=== PATIENT | male | born 1965 | race Two or more races ===

== ENCOUNTER 2022-07-25 07:10 | Inpatient (IN) | payer BC, OTHER ==
[~2022-07-25] VITALS: Ht 177.8 cm; Wt 96.0 kg
[2022-07-25] MEDS ORDERED: MORPHINE SULFATE 4 MG/ML SYR/VIAL IV ONE (08:00)
[2022-07-25] MEDS ORDERED: ONDANSETRON HCL 4 MG/2 ML VIAL IV ONE (08:00)
[2022-07-25] MEDS ORDERED: DOPamine 1600MCG/ML D5W 250 ML IV ONE (08:00)
[2022-07-25 08:06] LABS: Basophils # (auto) 0 10 ^3/uL (0-0.2); Basophils % (auto) 0.3 % (0.0-2.0); Eosinophils # (auto) 0 10 ^3/uL (0-0.8); Eosinophils % (auto) 0.1 % (0.0-7.0); Hematocrit 46.4 % (41.0-53.0); Hemoglobin 15.7 g/dL (13.5-17.5); Lymphocytes # (auto) 1.3 10 ^3/uL (0.4-5.4); Lymphocytes % (auto) 12.9 % (10.0-50.0); Mean Corpuscular Hemoglobin 30.2 pg (28.0-32.0); Mean Corpuscular Hgb Conc. 33.9 g/dL (32.0-36.0); Mean Corpuscular Volume 89.3 fL (80.0-100.0); Monocytes # (auto) 0.3 10 ^3/uL (0-1.3); Monocytes % (auto) 3.4 % (0.0-12.0); Neutrophils # (auto) 8.1 10 ^3/uL (1.6-8.6); Neutrophils % (auto) 83.3 % (37.0-80.0); Red Cell Distribution Width 13.5 % (11.8-14.3); White Blood Cell 9.7 10^3/uL (4.4-10.8)
[2022-07-25 08:24] LABS: Albumin 4.1 g/dL (3.4-5.0); Calcium 8.8 mg/dL (8.5-10.1); Potassium 4.5 mmol/L (3.5-5.1)
[2022-07-25 08:28] LABS: BUN/Creatinine Ratio 19.4; Bilirubin, Total 0.8 mg/dL (0.2-1.0); Total Protein 8.2 g/dL (6.4-8.2)
[2022-07-25 10:35] LABS: Urine Bacteria NONE SEEN /hpf (None Seen); Urine Blood Negative /uL (Negative); Urine Hyaline Cast FEW /lpf (0 - 2); Urine Mucus FEW (None Seen); Urine Specific Gravity 1.016 (1.001-1.035); Urine WBC 5 /hpf (0 - 3)
[2022-07-25] MEDS ORDERED: SODIUM CHLORIDE 0.9% 1,000 ML IV ONE (11:30)
[2022-07-25] MEDS ORDERED: MORPHINE SULFATE INJ 2 MG/ml SYRG IV PRN ×2 (14:15)
[2022-07-25] MEDS ORDERED: NITROGLYCERIN 0.4 MG SL TAB SL PRN (14:15)
[2022-07-25] MEDS ORDERED: hydrALAZINE HCL 20 MG/ML VL IV PRN (14:15)
[2022-07-25] MEDS ORDERED: ONDANSETRON HCL 4 MG/2 ML VIAL IV PRN (14:15)
[2022-07-25] MEDS ORDERED: DOPamine 1600MCG/ML D5W 250 ML IV SCH (17:00)
[2022-07-25] MEDS: DOPamine 1600MCG/ML D5W 250 ML IV SCH (19:00)
[2022-07-25] MEDS ORDERED: cefTRIAXone 1GM/50ML D5W 50 ML IV ONE (20:30)
[2022-07-25] MEDS: SODIUM CHLORIDE 0.9% 1,000 ML IV SCH (20:51)
[2022-07-25 21:20] LABS: Cholesterol 172 mg/dL (< 200); HDL Cholesterol 36 mg/dL (40-59); LDL Cholesterol 136 mg/dL (< 100); Triglycerides 61 mg/dL (< 150)
[2022-07-26] VITALS (7 sets, daily range): BP systolic 104–128; BP diastolic 60–85
[2022-07-26] MEDS ORDERED: DOPamine 1600MCG/ML D5W 250 ML IV SCH ×2 (00:45→00:48)
[2022-07-26] MEDS: SODIUM CHLORIDE 0.9% 1,000 ML IV SCH ×2 (06:27→20:59)
[2022-07-26 06:49] LABS: Basophils # (auto) 0 10 ^3/uL (0-0.2); Basophils % (auto) 0.3 % (0.0-2.0); Eosinophils # (auto) 0.2 10 ^3/uL (0-0.8); Eosinophils % (auto) 1.8 % (0.0-7.0); Hematocrit 45.5 % (41.0-53.0); Hemoglobin 14.7 g/dL (13.5-17.5); Lymphocytes # (auto) 1.9 10 ^3/uL (0.4-5.4); Lymphocytes % (auto) 17.1 % (10.0-50.0); Mean Corpuscular Hemoglobin 29.5 pg (28.0-32.0); Mean Corpuscular Hgb Conc. 32.3 g/dL (32.0-36.0); Mean Corpuscular Volume 91.3 fL (80.0-100.0); Monocytes # (auto) 0.8 10 ^3/uL (0-1.3); Monocytes % (auto) 7.3 % (0.0-12.0); Neutrophils # (auto) 8.2 10 ^3/uL (1.6-8.6); Neutrophils % (auto) 73.5 % (37.0-80.0); Red Blood Cells 4.98 10^6/uL (4.5-5.90); Red Cell Distribution Width 13.5 % (11.8-14.3); White Blood Cell 11.1 10^3/uL (4.4-10.8)
[2022-07-26 06:55] LABS: Albumin 3.5 g/dL (3.4-5.0); Calcium 8.1 mg/dL (8.5-10.1); Potassium 3.8 mmol/L (3.5-5.1)
[2022-07-26 07:00] LABS: BUN/Creatinine Ratio 17.9; Total Protein 7.4 g/dL (6.4-8.2)
[2022-07-26] MEDS: ENOXAPARIN SOD 40 MG/0.4 ML SYRINGE SC SCH (10:42)
[2022-07-26] MEDS: cefTRIAXone 1GM/50ML D5W 50 ML IV SCH (10:43)
[2022-07-26] MEDS ORDERED: LIDOCAINE 2%HCL (LOCAL ANESTH.) INJ 20ML MDV ONE (17:54)
[2022-07-26] MEDS ORDERED: fentaNYL CITRATE 100 MCG/2 ML VL ONE (18:03)
[2022-07-26] MEDS ORDERED: MIDAZOLAM HCL 2MG/2ML 2ml VIAL (1mg/ml) ONE (18:03)
[2022-07-26] MEDS ORDERED: VANCOMYCIN 1GM/250ML 250 ML IV ONE (18:04)
[2022-07-26] MEDS ORDERED: VANCOMYCIN HCL 1000 MG VL ONE (18:04)
[2022-07-26] MEDS ORDERED: ATORVASTATIN 20 MG TAB PO SCH (22:00)
[2022-07-27] MEDS: SODIUM CHLORIDE 0.9% 1,000 ML IV SCH (03:28)
[2022-07-27 05:31] VITALS: BP 127/71
[2022-07-27] MEDS ORDERED: VANCOMYCIN 1GM/250ML 250 ML IV ONE (06:00)
[2022-07-27 08:00] VITALS: BP 131/86
[2022-07-27 08:30] VITALS: BP 131/86
[2022-07-27] MEDS ORDERED: CIPR-173 PO (08:32)
[2022-07-27] MEDS ORDERED: ATO40T PO (08:32)
[2022-07-27] MEDS ORDERED: TAM04C PO (08:32)
[2022-07-27] MEDS: ENOXAPARIN SOD 40 MG/0.4 ML SYRINGE SC SCH (09:15)
[2022-07-27] MEDS: cefTRIAXone 1GM/50ML D5W 50 ML IV SCH (09:15)
[2022-07-27 11:58] VITALS: BP 131/86
== END 2022-07-27 12:46 | disposition home or self-care (01) | DRG 243 ==
LOC: ER 07:10 → TELE 14:15 → TELE-WESTW 07-26 09:04
PROVIDERS: ADMIT Registered Nurse; ATTEND Family Medicine
PROC: 0JH606Z Insertion of Pacemaker, Dual Chamber into Chest Subcutaneous Tissue and Fascia, Open Approach (ICD-10-PCS; principal; 2022-07-26)
PROC: 02H63JZ Insertion of Pacemaker Lead into Right Atrium, Percutaneous Approach (ICD-10-PCS; 2022-07-26)
PROC: 02HK3JZ Insertion of Pacemaker Lead into Right Ventricle, Percutaneous Approach (ICD-10-PCS; 2022-07-26)
DX: R00.1 Bradycardia, unspecified (principal); N39.0 Urinary tract infection, site not specified; E78.00 Pure hypercholesterolemia, unspecified; I10 Essential (primary) hypertension; I95.9 Hypotension, unspecified; R11.2 Nausea with vomiting, unspecified; N40.1 Benign prostatic hyperplasia with lower urinary tract symptoms; R33.8 Other retention of urine; Z79.899 Other long term (current) drug therapy; Z95.0 Presence of cardiac pacemaker; Z20.822 Contact with and (suspected) exposure to COVID-19
CPT/HCPCS: 33208; 36415; 71045; 74176; 80053; 80061; 81001; 82962; 83036; 83605; 84443; 84484; 85025; 87040; 93005; 93306; 93886; 96365; 96375; 99152; 99153; C1785; G0378; J0696; J2250; J2405

== ENCOUNTER → 2023-12-12 | Outpatient (CLI) | payer BC ==
[~2023-12-12] MED LIST: ATO40T PO; CIPR-173 PO; TAMS-35 PO
[2023-12-12 07:45] LABS: Basophils # (auto) 0 10 ^3/uL (0-0.2); Basophils % (auto) 0.5 % (0.0-2.0); Eosinophils # (auto) 0.3 10 ^3/uL (0-0.8); Eosinophils % (auto) 4.4 % (0.0-7.0); Hematocrit 45.3 % (41.0-53.0); Hemoglobin 15.4 g/dL (13.5-17.5); Lymphocytes # (auto) 1.5 10 ^3/uL (0.4-5.4); Lymphocytes % (auto) 21.5 % (10.0-50.0); Mean Corpuscular Hemoglobin 31.6 pg (28.0-32.0); Mean Corpuscular Hgb Conc. 34.1 g/dL (32.0-36.0); Mean Corpuscular Volume 92.7 fL (80.0-100.0); Monocytes # (auto) 0.4 10 ^3/uL (0-1.3); Monocytes % (auto) 5.9 % (0.0-12.0); Neutrophils # (auto) 4.7 10 ^3/uL (1.6-8.6); Neutrophils % (auto) 67.7 % (37.0-80.0); Nucleated Red Blood Cells % 0.2 %; Red Blood Cells 4.89 10^6/uL (4.5-5.90); White Blood Cell 6.9 10^3/uL (4.4-10.8)
[2023-12-12 08:07] LABS: Urine Blood Negative /uL (Negative); Urine Clarity Clear (Clear); Urine Color Colorless (Yellow); Urine Protein, UAD Negative (Negative); Urine Specific Gravity 1.022 (1.001-1.035); Urine Urobilinogen Normal (Negative)
[2023-12-12 08:24] LABS: Alanine Aminotransferase 41 U/L (7-40); Alkaline Phosphatase 117 U/L (46-116); Anion Gap 6 (5-15); Calcium 9.1 mg/dL (8.5-10.1); Carbon Dioxide 27 mmol/L (20-30); Chloride 107 mmol/L (98-107); Potassium 4.5 mmol/L (3.5-5.1); Sodium 140 mmol/L (136-145); Triglycerides 47 mg/dL (< 150)
[2023-12-12 08:25] LABS: Blood Urea Nitrogen 12 mg/dL (9-23); Glucose 99 mg/dL (74-106)
[2023-12-12 08:26] LABS: LDL Cholesterol 58 mg/dL (< 100)
[2023-12-12 08:27] LABS: Albumin 4.3 g/dL (3.2-4.8); Aspartate Aminotransferase 28 U/L (13-40); Bilirubin, Direct 0.4 mg/dL (<0.3); Cholesterol 97 mg/dL (< 200); HDL Cholesterol 31 mg/dL (40-59); Total Protein 7.2 g/dL (5.7-8.2)
[2023-12-12 08:48] LABS: Prostate Specific Antigen 9.17 ng/mL (0.0-4.0)
[2023-12-12 08:54] LABS: Free T4 (Free Thyroxine) 0.94 ng/dL (0.89-1.76)
[2023-12-13 08:07] LABS: PSA Free 1.9 ng/mL; Prostate Specific Antigen 10.6 ng/mL (0.0-4.0)
== END | disposition home or self-care (01) ==
LOC: LAB 07:17
PROVIDERS: ATTEND Internal Medicine Cardiovascular Disease
DX: I10 Essential (primary) hypertension (principal); E29.1 Testicular hypofunction; D64.9 Anemia, unspecified; N39.0 Urinary tract infection, site not specified; R53.1 Weakness; E55.9 Vitamin D deficiency, unspecified
CPT/HCPCS: 36415; 80053; 80061; 80076; 81003; 82607; 83036; 84153; 84154; 84403; 84439; 84443; 85025

== ENCOUNTER 2024-12-15 04:42 | Inpatient (IN) | payer BC ==
[~2024-12-15] VITALS: Ht 177.8 cm; Wt 91.9 kg
[~2024-12-15 04:42] MED LIST changes: -ATO40T PO; +ATOR-507 PO
--- NOTE | 2024-12-15 06:15 | ED.PDOC ---
History of Present Illness HPI Comments 59 y/o M, with a Hx of bradycardia s/p pacemaker, BPH, HLD, and UTI's, presents with c/o acute urinary retention with associated suprapubic abdominal pain, today. Patient endorses on sudden and unprovoked onset of symptoms, yesterday, at 1900. At time of initial assessment, patient reports no further relevant or pertinent information, such additional medical or surgical Hx, recent sexual activities, or injuries. He denies having any additional urinary symptoms, nausea, vomiting, fever, chills, or other associated symptoms or modifiers at this time. Chief Complaint: Urinary Time Seen by MD: 05:40 Primary Care Provider: None Reviewed Notes: Nurses Notes, Medications, Allergies Allergies: Coded Allergies: No Known Drug Allergy (Verified Allergy, Unknown, 07/25/22) Home Meds Active Scripts Atorvastatin Calcium (Lipitor) 40 Mg Tab, 1 TAB PO DAILY, #90 TAB 1 Refill Prov:CORI SAINZ MD 07/27/22 Ciprofloxacin Hcl (Cipro) 500 Mg Tab, 1 TAB PO BID, #14 TAB Prov:CORI SAINZ MD 07/27/22 Tamsulosin Hcl (Flomax) 0.4 Mg Cap, 1 CAP PO DAILY, #30 CAP 11 Refills Prov:CORI SAINZ MD 07/27/22 Information Source: Patient Mode of Arrival: Ambulatory Severity: Moderate Timing: Hours Duration: Since onset Prehospital treatment: None Past Medical History PAST MEDICAL HISTORY: High Lipids, UTI'S Past Medical History (Other): BPH, bradycardia Surgical History: Pacemaker Family History Family History: Reviewed,noncontributory to illness Social History Smoker: Non-Smoker Alcohol: Denies ETOH Use, Unknown Drugs: Denies Drug Use Lives In: Home Gastrointestinal: reports: abdominal pain (suparpubic region ) Genitourinary: reports: others (urinary retention) All Other Systems: Reviewed and Negative (negative unless otherwise stated above or in HPI) Physical Exam General Appearance: Moderate Distress, Normal HEENT: Normal ENT Inspection, Pharynx Normal, TMs Normal Neck: Full Range of Motion, Non-Tender, Normal, Normal Inspection Respiratory: Chest Non-Tender, Lungs Clear, No Accessory Muscle Use, No Respiratory Distress, Normal Breath Sounds Cardiovascular: No Edema, No JVD, No Murmur, No Gallop, Normal Peripheral Pulses, Regular Rate/Rhythm Breast Exam: Deferred Gastrointestinal: Distended (suprapubic region ), No Organomegaly, No Pulsatile Mass, Normal Bowel Sounds, Soft, Suprapubic (tenderness ), Tenderness (suprapubic region ) Genitalia: Deferred Pelvic: Deferred Rectal: Deferred Extremities: No calf tenderness, Normal capillary refill, Normal inspection, Normal range of motion, Non-tender, No pedal edema Musculoskeletal : Apperance: Normal Neurologic: Alert, health care aide II-XII nml as Tested, No Motor Deficits, Normal Affect, Normal Mood, No Sensory Deficits Cerebellar Function: NOT DONE Reflexes: NOT DONE Skin: Dry, Normal Color, Warm Peripheral Pulses: 3+ Radial (R), 3+ Radial (L) Lymphatic: No Adenopathy Was a procedure done? Was a procedure done?: No Differential Dx Considerations may include: UTI, ureteral obstruction, cystitis, ureteral stone, ureteral stenosis, prostatitis, X-Ray, Labs, Meds, VS Vital Signs Date Time Temp Pulse Resp B/P (MAP) Pulse Ox O2 Delivery O2 Flow Rate FiO2 12/15/24 08:00 81 11 130/88 (102) 95 12/15/24 08:00 81 12/15/24 06:40 Room Air* 0 21 12/15/24 05:44 97.9 100 19 123/99 (107) 96 97.9 12/15/24 05:37 97.8 128 26 139/118 (125) 98 Lab Test 12/15/24 07:05 12/15/24 05:50 Range/Units White Blood Count 13.1 H 4.4-10.8 10^3/uL Red Blood Count 4.83 4.5-5.90 10^6/uL Hemoglobin 15.5 13.5-17.5 g/dL Hematocrit 43.9 41.0-53.0 % Mean Corpuscular Volume 90.9 80.0-100.0 fL Mean Corpuscular Hemoglobin 32.0 28.0-32.0 pg Mean Corpuscular Hemoglobin Concent 35.2 32.0-36.0 g/dL Red Cell Distribution Width 13.3 11.8-14.3 % Platelet Count 158 140-450 10^3/uL Mean Platelet Volume 10.3 6.9-10.8 fL Neutrophils (%) (Auto) 89.4 H 37.0-80.0 % Lymphocytes (%) (Auto) 5.6 L 10.0-50.0 % Monocytes (%) (Auto) 4.8 0.0-12.0 % Eosinophils (%) (Auto) 0.0 0.0-7.0 % Basophils (%) (Auto) 0.2 0.0-2.0 % Neutrophils # (Auto) 11.7 H 1.6-8.6 10 ^3/uL Lymphocytes # (Auto) 0.7 0.4-5.4 10 ^3/uL Monocytes # (Auto) 0.6 0-1.3 10 ^3/uL Eosinophils # (Auto) 0 0-0.8 10 ^3/uL Basophils # (Auto) 0 0-0.2 10 ^3/uL Nucleated Red Blood Cells 0.1 % Sodium Level 138 136-145 mmol/L Potassium Level 3.5 3.5-5.1 mmol/L Chloride Level 105 98-107 mmol/L Carbon Dioxide Level 23 20-31 mmol/L Anion Gap 10 5-15 Blood Urea Nitrogen 14 9-23 mg/dL Creatinine 0.79 0.700-1.30 mg/dL Glomerular Filtration Rate Calc 102 >90 mL/min BUN/Creatinine Ratio 17.7 10.0-20.0 Serum Glucose 117 H 74-106 mg/dL Calcium Level 9.9 8.7-10.4 mg/dL Urine Color Light-yellow Yellow Urine Clarity Clear Clear Urine pH 5.0 5.0-9.0 Urine Specific [place] 1.010 1.001-1.035 Urine Protein Negative Negative Urine Ketones Negative Negative Urine Blood 2+ H Negative /uL Urine Nitrite Negative Negative Urine Bilirubin Negative Negative Urine Urobilinogen Normal Negative mg/dL Urine Leukocyte Esterase Negative Negative /uL Urine RBC 8 0 - 3 /hpf Urine Microscopic WBC < 1 0-3 /HPF Urine Squamous Epithelial Cells None seen <5 /hpf Urine Bacteria None seen None Seen /hpf Urine Glucose Normal Normal mg/dL Patient alert. Complaining of suprapubic discomfort. Vitals stable. Answering questions. Urinalysis shows blood. Possibly passed kidney stone. WBC elevated. Was given Rocephin. Explained to the patient. Continue cardiac monitoring. Time of 1ST Reevaluation: 06:00 Reevaluation 1ST: Unchanged Patient Education/Counseling: Diagnosis, Treatment Family Education/Counseling: No Family Present Assigned to signed out to morning provider MD. Jarvis England Additional Information I reviewed the following notes from patient's past medical encounters: Hospital admission discharge summary on 07/27/22 The following tests were ordered, and results were reviewed by me: UA, CBC, BMP I discussed treatment and results with medical personnel Departure 1 Departure Time of Disposition: 09:23 Impression: Primary Impression: Kidney stone Additional Impression: Hematuria Qualified Codes: R31.9 - Hematuria, unspecified Disposition: ADMITTED INPATIENT Admit to: Med Surg Condition: Guarded Critical Care Note Critical Care Time?: No Stability Stability form required: No Heart Score Heart Score: Heart Score Response (Comments) Value History N/A 0 EKG N/A 0 Age N/A 0 Risk Factors N/A 0 Troponin N/A 0 Total 0 I personally scribed for LEXI GUERRERO MD ([email or web address]) on 12/15/24 at 06:15. Electronically submitted by Rg Macdonald ([email or web address]). I personally scribed for LEXI GUERRERO MD ([email or web address]) on 12/15/24 at 06:19. Electronically submitted by Rg Macdonald ([email or web address]). LEXI GUERRERO MD Dec 15, 2024 06:15 JESUS ENGLAND MD Dec 15, 2024 09:23
[2024-12-15 06:22] LABS: Urine Bacteria None Seen /hpf (None Seen)
[2024-12-15 06:31] LABS: Urine Blood 2+ /uL (Negative); Urine Clarity Clear (Clear); Urine Color Light-Yellow (Yellow); Urine Protein, UAD Negative (Negative); Urine Squamous Epithelial Cell None Seen /hpf (<5); Urine Urobilinogen Normal (Negative); Urine WBC < 1 /HPF (0-3)
[2024-12-15 07:38] LABS: Anion Gap 10 (5-15); Carbon Dioxide 23 mmol/L (20-31); Chloride 105 mmol/L (98-107); Potassium 3.5 mmol/L (3.5-5.1); Sodium 138 mmol/L (136-145)
[2024-12-15 07:39] LABS: Calcium 9.9 mg/dL (8.7-10.4)
[2024-12-15 07:41] LABS: Basophils # (auto) 0 10 ^3/uL (0-0.2); Basophils % (auto) 0.2 % (0.0-2.0); Eosinophils # (auto) 0 10 ^3/uL (0-0.8); Hematocrit 43.9 % (41.0-53.0); Hemoglobin 15.5 g/dL (13.5-17.5); Lymphocytes # (auto) 0.7 10 ^3/uL (0.4-5.4); Lymphocytes % (auto) 5.6 % (10.0-50.0); Mean Corpuscular Hgb Conc. 35.2 g/dL (32.0-36.0); Mean Corpuscular Volume 90.9 fL (80.0-100.0); Monocytes # (auto) 0.6 10 ^3/uL (0-1.3); Monocytes % (auto) 4.8 % (0.0-12.0); Neutrophils # (auto) 11.7 10 ^3/uL (1.6-8.6); Neutrophils % (auto) 89.4 % (37.0-80.0); Nucleated Red Blood Cells % 0.1 %; Platelet Count (auto) 158 10^3/uL (140-450); Red Blood Cells 4.83 10^6/uL (4.5-5.90); Red Cell Distribution Width 13.3 % (11.8-14.3); White Blood Cell 13.1 10^3/uL (4.4-10.8)
[2024-12-15 07:44] LABS: BUN/Creatinine Ratio 17.7 (10.0-20.0); Blood Urea Nitrogen 14 mg/dL (9-23)
[2024-12-15 07:47] LABS: Glucose 117 mg/dL (74-106)
[2024-12-15] MEDS ORDERED: ACETAMINOPHEN 325 MG TAB PO PRN (09:45)
[2024-12-15] MEDS ORDERED: HYDROcodone-ACET 5/325MG TAB PO PRN (09:45)
[2024-12-15] MEDS ORDERED: ONDANSETRON HCL 4 MG/2 ML VIAL IV PRN (09:45)
[2024-12-15] MEDS: cefTRIAXone 1GM/50ML D5W 50 ML IV ONE (09:47)
--- NOTE | 2024-12-15 10:23 | DVHHP2 ---
History of Present Illness Reason for Visit: Abdominal pain History of Present Illness Simon Sanders is a 59-year-old male with past medical history of hypertension, hyperlipidemia, BPH, frequent UTIs, and bradycardia with pacemaker placed 4 years ago at [facility] who presents to the ED with suprapubic abdominal pain and urinary retention since 7:00 p.m. last night. Patient reports the pain as 10/10 intermittent and pressure-like. He states the last time he had this issue was several years ago. Patient denies any chest pain, shortness of breath, fever, chills, lightheadedness, dizziness, urinary frequency, urinary urgency, nausea, vomiting, and diarrhea. Cardiovascular: HTN, hyperipidemia, Other (Bradycardia) Renal/: Benign prostatic enlarg. Past Surgical History: Other (Pacemaker) Family History: None Smoke: No ALCOHOL: none Drugs: None Lives: Alone Domestic Violence: Neg Review of Systems Constitutional: No: Fever, Chills, Sweats, Weakness, Malaise, Other Eyes: No: Pain, Vision change, Conjunctivae inflammation, Eyelid inflammation, Other, Redness ENT: No: Ear pain, Ear discharge, Nose pain, Nose discharge, Nose congestion, Mouth pain, Mouth swelling, Throat pain, Throat swelling, Other Respiratory: No: Cough, Dry, Shortness of breath, SOB with excertion, Wheezing, Hemoptysis, Pleuritic Pain, Sputum, Wheezing, Other Cardiovascular: No: Chest Pain, Palpitations, Orthopnea, Paroxysmal Noc. Dyspnea, Edema, Lt Headedness, Other Gastrointestinal: No: Nausea, Vomiting, Abdominal Pain, Diarrhea, Constipation, Melena, Hematochezia, Other Genitourinary: Hematuria, Retention Musculoskeletal: No: other, neck pain, shoulder pain, arm pain, back pain, hand pain, leg pain, foot pain Neurological: No: Weakness, Numbness, Incoordination, Change in speech, Confusion, Seizures, Other Allergies: Coded Allergies: No Known Drug Allergy (Verified Allergy, Unknown, 07/25/22) Medications Current Medications Medications Dose Ordered Sig/Syeda Route Start Time Stop Time Status Last Admin Dose Admin Ceftriaxone Sodium 50 ml @ 100 mls/hr DAILY@09 IV 12/16/24 09:00 UNV Acetaminophen/ Hydrocodone Bitart 1 tab Q4HP PRN PO 12/15/24 09:45 UNV Ondansetron HCl 4 mg Q4HP PRN IV 12/15/24 09:45 UNV Acetaminophen 650 mg Q6HP PRN PO 12/15/24 09:45 UNV Tamsulosin HCl 0.4 mg DAILY PO 12/15/24 10:00 UNV Patient Own Medication 1 tab DAILY PO 12/15/24 10:00 UNV Exam Vital Signs Vital Signs Date Time Temp Pulse Resp B/P (MAP) Pulse Ox O2 Delivery O2 Flow Rate FiO2 12/15/24 08:00 81 11 130/88 (102) 95 12/15/24 06:40 Room Air* 0 21 12/15/24 05:44 97.9 97.9 General Appearance: Alert, Oriented X3, Cooperative, No acute distress HEENT: Atraumatic, PERRLA, EOMI, Mucous membr. moist/pink Respiratory: Clear to auscultation, Normal air movement Cardiovascular: Normal S1, Normal S2, No murmurs Abdominal: Normal bowel sounds, Soft, No tenderness, No hepatospenomegaly, No masses Extremities: No clubbing, No cyanosis, No edema, Normal pulses, No tenderness/swelling Skin: No rashes, No breakdown, No significant lesion Neuro: Normal gait, Normal speech, Strength at 5/5 X4 ext, Normal tone, Sensation intact Psych/Mental Status: Mental status NL, Mood NL Labs/Xrays Labs Test 12/15/24 07:05 12/15/24 05:50 Range/Units White Blood Count 13.1 H 4.4-10.8 10^3/uL Red Blood Count 4.83 4.5-5.90 10^6/uL Hemoglobin 15.5 13.5-17.5 g/dL Hematocrit 43.9 41.0-53.0 % Mean Corpuscular Volume 90.9 80.0-100.0 fL Mean Corpuscular Hemoglobin 32.0 28.0-32.0 pg Mean Corpuscular Hemoglobin Concent 35.2 32.0-36.0 g/dL Red Cell Distribution Width 13.3 11.8-14.3 % Platelet Count 158 140-450 10^3/uL Mean Platelet Volume 10.3 6.9-10.8 fL Neutrophils (%) (Auto) 89.4 H 37.0-80.0 % Lymphocytes (%) (Auto) 5.6 L 10.0-50.0 % Monocytes (%) (Auto) 4.8 0.0-12.0 % Eosinophils (%) (Auto) 0.0 0.0-7.0 % Basophils (%) (Auto) 0.2 0.0-2.0 % Neutrophils # (Auto) 11.7 H 1.6-8.6 10 ^3/uL Lymphocytes # (Auto) 0.7 0.4-5.4 10 ^3/uL Monocytes # (Auto) 0.6 0-1.3 10 ^3/uL Eosinophils # (Auto) 0 0-0.8 10 ^3/uL Basophils # (Auto) 0 0-0.2 10 ^3/uL Nucleated Red Blood Cells 0.1 % Sodium Level 138 136-145 mmol/L Potassium Level 3.5 3.5-5.1 mmol/L Chloride Level 105 98-107 mmol/L Carbon Dioxide Level 23 20-31 mmol/L Anion Gap 10 5-15 Blood Urea Nitrogen 14 9-23 mg/dL Creatinine 0.79 0.700-1.30 mg/dL Glomerular Filtration Rate Calc 102 >90 mL/min BUN/Creatinine Ratio 17.7 10.0-20.0 Serum Glucose 117 H 74-106 mg/dL Calcium Level 9.9 8.7-10.4 mg/dL Urine Color Light-yellow Yellow Urine Clarity Clear Clear Urine pH 5.0 5.0-9.0 Urine Specific [place] 1.010 1.001-1.035 Urine Protein Negative Negative Urine Ketones Negative Negative Urine Blood 2+ H Negative /uL Urine Nitrite Negative Negative Urine Bilirubin Negative Negative Urine Urobilinogen Normal Negative mg/dL Urine Leukocyte Esterase Negative Negative /uL Urine RBC 8 0 - 3 /hpf Urine Microscopic WBC < 1 0-3 /HPF Urine Squamous Epithelial Cells None seen <5 /hpf Urine Bacteria None seen None Seen /hpf Urine Glucose Normal Normal mg/dL Exam: CT CT AB PEL WO CON-NO ORAL OR IV History: abd pain Comparison Study: [facility] on DOS: 07/25/22, CT ABD PELVIS WO CONTRAST on DOS: 07/25/22 Technique: Multidetector spiral CT of the abdomen and pelvis was performed from lung bases to pubic symphysis. Imaging was performed without IV contrast. Axial, coronal and sagittal multiplanar reformats were obtained from the axial data set by the technologist. Radiation dose : Abdomen/Pelvis: CTDIvol 21 mGy, DLP 863.12 mGy*cm. Findings: Evaluation of solid organs is limited due to lack of intravenous contrast use. Lung Bases: Atelectasis and scarring in the lung bases. Liver: Suggestion of a hypodense lesion in the dome of the liver measuring up to 25 mm. Gallbladder and biliary Tree: Unremarkable Spleen: Unremarkable Pancreas: The pancreas is grossly normal in appearance. Adrenal Glands: Unremarkable Kidneys: Kidneys are grossly normal without calculi or hydronephrosis. Bladder: Bladder is decompressed with a Muñoz catheter and cannot be adequately assessed. Bowel: The stomach is grossly normal in appearance. Small bowel and colon are normal in caliber and distribution. Normal appendix is visualized in the right lower quadrant without findings of appendicitis. Ascites: Absent Lymphadenopathy: No mesenteric, retroperitoneal or periportal lymphadenopathy. Abdominal wall and Mesentery: Unremarkable. Vasculature: Calcified atherosclerotic disease. Pelvic Organs: Marked prostatomegaly. Musculoskeletal: No aggressive focal bony lesions, acute fractures or dislocation. IMPRESSION: 1. No acute abdominal or pelvic findings. Suggestion of a hypodense lesion in the dome of the liver. This can be further evaluated with CT or MRI of the abdomen with contrast. Marked prostatomegaly. No significant interval change compared to prior. Assessment/Plan Assessment/Plan Assessment/Plan: Intractable abdominal pain likely due to UTI Leukocytosis Hematuria Labs UA Muñoz catheter IV antibiotics-ceftriaxone CT abdomen and pelvis Antiemetics Pain management A.m. labs CT abdomen and pelvis Suggestion of a hypodense lesion in the dome of the liver CT abdomen pelvis with contrast Chronic hypertension Monitor patient states not on any medications Chronic hyperlipidemia Continue home medication History of BPH Continue home medication History of bradycardia now with pacemaker over 4 years ago Monitor Last echo on 01/20/2024 EF 55% FEN/PPX Diet Hep-Lock DVT prophylaxis not indicated patient ambulating PUD prophylaxis not indicated no history of GERD or GI bleed Admit to med surg Home medications reconciled Discussed plan of care with patient and nurse Plan discussed with: Patient My Orders Orders - RAUL MORA BUILDING RIGGER Procedure Category Date Status Time Ct Ab Pel Wo Con-No CT 12/15/24 Taken Oral Or Iv 09:33 Ceftriaxone 1gm/50ml PHA 12/16/24 Logged D5w (Rocephin) 09:00 Admit ADMIT 12/15/24 Transmitted 09:36 Allergies KEI 12/15/24 In Process 09:36 Code Status CODE 12/15/24 Transmitted 09:36 Hydrocodone-Acet PHA 12/15/24 Logged 5/325mg Tab (Lorenzo 09:45 Ondansetron Hcl PHA 12/15/24 Logged (Zofran) 09:45 Complete Blood Count LAB 12/16/24 Verified 04:00 Comprehensive LAB 12/16/24 Verified Metabolic Panel 04:00 Cardiac DIET 12/15/24 Transmitted Diet-2gna,Lofat,Lochol Lunch Acetaminophen Tablet PHA 12/15/24 Logged (Tylenol Tablet) 09:45 Tamsulosin PHA 12/15/24 Logged Hydrochloride (Flomax) 10:00 (Nf) Atorvastatin PHA 12/15/24 Logged Calcium (Lipitor) 10:00 Date of Service: Dec 15, 2024 Billing Provider: RAUL MORA Common Visit Codes: [id number] INP/OBS CARE (HIGH) RAUL MORA Dec 15, 2024 10:23
--- NOTE | 2024-12-15 10:36 | DVH ---
Exam: CT CT AB PEL WO CON-NO ORAL OR IV History: abd pain Comparison Study: [facility]ID[facility] on DOS: 07/25/22, CT ABD PELVIS WO CONTRAST on DOS: 07/25/22 Technique: Multidetector spiral CT of the abdomen and pelvis was performed from lung bases to pubic symphysis. Imaging was performed without IV contrast. Axial, coronal and sagittal multiplanar reform ats were obtained from the axial data set by the technologist. Radiation dose : Abdomen/Pelvis: CTDIvol 21 mGy, DLP 863.12 mGy*cm. Findings: Evaluation of solid organs is limited due to lack of intravenous contrast use. Lung Bases: Atelectasis and scarring in the lung bases. Liver: Suggestion of a hypodense lesion in the dome of the liver measuring up to 25 mm. Gallbladder and biliary Tree: Unremarkable Spleen: Unremarkable Pancreas: The pancreas is grossly normal in appearance. Adrenal Glands: Unremarkable Kidneys: Kidneys are grossly normal without calculi or hydronephrosis. Bladder: Bladder is decompressed with a Muñoz catheter and cannot be adequately assessed. Bowel: The stomach is grossly normal in appearance. Small bowel and colon are normal in caliber and d istribution. Normal appendix is visualized in the right lower quadrant without findings of appendici tis. Ascites: Absent Lymphadenopathy: No mesenteric, retroperitoneal or periportal lymphadenopathy. Abdominal wall and Mesentery: Unremarkable. Vasculature: Calcified atherosclerotic disease. Pelvic Organs: Marked prostatomegaly. Musculoskeletal: No aggressive focal bony lesions, acute fractures or dislocation. IMPRESSION: 1. No acute abdominal or pelvic findings. Suggestion of a hypodense lesion in the dome of the liver. This can be further evaluated with CT or MRI of the abdomen with contrast. Marked prostatomegaly. No significant interval change compared to prior. Radiation optimization: All CT scans at this facility use at least one of these dose optimization dao hniques: Automated exposure control mA and/or kV adjustment per patient size (includes targeted exams where dose is matched to clinical indication) or iterative reconstruction. HS:Y
[2024-12-15] MEDS: TAMSULOSIN HYDROCHLORIDE 0.4 MG CAP PO SCH (11:10)
[2024-12-15 11:13] VITALS: PULSE 70; RESP 16; O2SAT 93
[2024-12-15 14:08] VITALS: PULSE 71; RESP 17; O2SAT 95
[2024-12-15] MEDS: GASTROGRAFIN 30 ML SOL ONE (15:42)
[2024-12-15] MEDS: FINASTERIDE 5 MG TAB PO ONE (17:51)
[2024-12-15 18:30] VITALS: BP 133/84; PULSE 76; RESP 19; TEMP 98.4; O2SAT 95
[2024-12-15] MEDS ORDERED: IOHEXOL 300 MG/ML 100ML BOTTLE IJ ONE (19:19)
[2024-12-15 19:25] VITALS: PULSE 76; RESP 19; O2SAT 95
--- NOTE | 2024-12-15 20:40 | DVH ---
Exam: CT CT ABD PELVIS W CON-ORAL IV History: liver lesion Comparison Study: CT CT AB PEL WO CON-NO ORAL OR IV on DOS: 12/15/24 TECHNIQUE: A digital dual hose cementer image was obtained. During the uneventful, intravenous and oral administra tion of contrast material, multislice data acquisition was obtained through the abdomen and pelvis. T he data set was subsequently reconstructed into axial images. Images reviewed on a wrist examination is an examination of axial and multiplanar reformations using a variety of window levels and settings . RADIATION DOSE: DLP 1205.02 mGy.cm; CTDI vol 21.0 mGy. Findings: Lungs: The lung bases are clear. Heart: No cardiomegaly or pericardial effusion. Liver: 1.4 x 2.8 cm hypoattenuating lesion in the dome of liver is suboptimally visualized due to mot ion artifact. Gallbladder: Unremarkable. Spleen: Unremarkable Pancreas: Unremarkable Adrenals: Unremarkable Kidneys: Unremarkable GI tract: Unremarkable : The urinary bladder is decompressed via Muñoz catheter. Prostatomegaly. Vasculature: Moderate aortoiliac atherosclerosis. Lymphadenopathy: Absent Peritoneum: No ascites Musculoskeletal: Unremarkable Soft tissues: Unremarkable Impression: 1. No acute abdominopelvic abnormalities. 2. 1.4 x 2.8 cm hypoattenuating lesion in the dome of liver is suboptimally visualized due to motion artifact. Consider further evaluation with contrast enhanced MRI. 3. Other non-acute, ancillary findings as described above.
[2024-12-15] MEDS: ATORVASTATIN 20 MG TAB PO SCH (23:00)
[2024-12-15 23:26] VITALS: BP 121/75; PULSE 72; RESP 20; TEMP 98.5; O2SAT 92
[2024-12-16] VITALS (8 sets, daily range): BP systolic 113–130; BP diastolic 61–82; PULSE 70–79; RESP 18–20; TEMP 97.9–98.1; O2SAT 92–98
[2024-12-16 07:34] LABS: Basophils # (auto) 0 10 ^3/uL (0-0.2); Basophils % (auto) 0.2 % (0.0-2.0); Eosinophils # (auto) 0.2 10 ^3/uL (0-0.8); Eosinophils % (auto) 2.7 % (0.0-7.0); Hematocrit 44.1 % (41.0-53.0); Hemoglobin 15.1 g/dL (13.5-17.5); Lymphocytes # (auto) 1.3 10 ^3/uL (0.4-5.4); Mean Corpuscular Hemoglobin 31.9 pg (28.0-32.0); Mean Corpuscular Hgb Conc. 34.3 g/dL (32.0-36.0); Mean Corpuscular Volume 93.3 fL (80.0-100.0); Monocytes # (auto) 0.5 10 ^3/uL (0-1.3); Monocytes % (auto) 5.4 % (0.0-12.0); Neutrophils # (auto) 6.8 10 ^3/uL (1.6-8.6); Neutrophils % (auto) 76.7 % (37.0-80.0); Nucleated Red Blood Cells % 0.1 %; Platelet Count (auto) 154 10^3/uL (140-450); Red Blood Cells 4.73 10^6/uL (4.5-5.90); Red Cell Distribution Width 13.5 % (11.8-14.3); White Blood Cell 8.9 10^3/uL (4.4-10.8)
[2024-12-16 07:57] LABS: Alanine Aminotransferase 33 U/L (7-40); Albumin 3.9 g/dL (3.2-4.8); Anion Gap 8 (5-15); Aspartate Aminotransferase 29 U/L (13-40); BUN/Creatinine Ratio 17.6 (10.0-20.0); Blood Urea Nitrogen 16 mg/dL (9-23); Calcium 9.1 mg/dL (8.7-10.4); Carbon Dioxide 25 mmol/L (20-31); Chloride 106 mmol/L (98-107); Potassium 4.3 mmol/L (3.5-5.1); Sodium 139 mmol/L (136-145); Total Protein 6.3 g/dL (5.7-8.2)
[2024-12-16 08:02] LABS: Alkaline Phosphatase 119 U/L (46-116); Bilirubin, Total 1.3 mg/dL (0.2-1.0); Glucose 139 mg/dL (74-106)
[2024-12-16] MEDS: cefTRIAXone 1GM/50ML D5W 50 ML IV SCH (09:15)
[2024-12-16] MEDS: FINASTERIDE 5 MG TAB PO SCH (09:15)
--- NOTE | 2024-12-16 16:02 | DVHPN2 ---
Subjective Patient reports that his abdominal pain has improved. Reviewed: Care Plan, H&P, Labs, Medications Changes from previous H/P or p: No Changes General: Per HPI Eyes: No Pain, No Vision change, No Conjunctivae inflammation, No Eyelid inflammation, No Other, No Redness ENT: No Ear pain, No Ear discharge, No Nose pain, No Nose discharge, No Nose congestion, No Mouth pain, No Mouth swelling, No Throat pain, No Throat swelling, No Other Cardiovascular: No Chest Pain, No Palpitations, No Orthopnea, No Paroxysmal Noc. Dyspnea, No Edema, No Lt Headedness, No Other Respiratory: No Cough, No Dry, No Shortness of breath, No SOB with excertion, No Wheezing, No Hemoptysis, No Pleuritic Pain, No Sputum, No Other Gastrointestinal: No Nausea, No Vomiting, No Abdominal Pain, No Diarrhea, No Constipation, No Melena, No Hematochezia, No Other Genitourinary: Hematuria, Retention Musculoskeletal: No other, No neck pain, No shoulder pain, No arm pain, No back pain, No hand pain, No leg pain, No foot pain Objective Vitals Vital Signs Date Time Temp Pulse Resp B/P (MAP) Pulse Ox O2 Delivery O2 Flow Rate FiO2 12/16/24 13:00 98.1 72 18 127/82 (97) 95 98.1 12/16/24 08:00 Room Air* 0 21 Intake/Output Intake and Output 12/16/24 07:00 Intake Total 400 ml Output Total 2650 ml Balance -2250 ml Intake Oral 300 ml IV Total 100 ml Output Urine Total 2650 ml General Appearance: Alert, Oriented X3, Cooperative, No acute distress HEENT: Atraumatic, PERRLA Lungs: Clear to auscultation, Normal air movement Cardiovascular: Normal S1, Normal S2 Abdomen: Normal bowel sounds Genitourinary: No Apparent Abnormalities Musculoskeletal: Normal sensory function, Normal motor function Neuro: Normal gait, Normal speech Psych/Mental Status: Mental status NL, Mood NL Medications Current Medications Medications Dose Ordered Sig/Syeda Route Start Time Stop Time Status Last Admin Dose Admin Ceftriaxone Sodium 50 ml @ 100 mls/hr DAILY@09 IV 12/16/24 09:00 12/16/24 09:15 100 MLS/HR Acetaminophen/ Hydrocodone Bitart 1 tab Q4HP PRN PO 12/15/24 09:45 Ondansetron HCl 4 mg Q4HP PRN IV 12/15/24 09:45 Acetaminophen 650 mg Q6HP PRN PO 12/15/24 09:45 Tamsulosin HCl 0.4 mg DAILY PO 12/15/24 10:00 12/16/24 09:15 0.4 MG Atorvastatin Calcium 40 mg HS PO 12/15/24 22:00 12/15/24 23:00 40 MG Finasteride 5 mg DAILY PO 12/16/24 10:00 12/16/24 09:15 5 MG Laboratory Results Laboratory Tests 12/16/24 06:55 Chemistry Test 12/16/24 06:55 Albumin 3.9 g/dL (3.2-4.8) Calcium Level 9.1 mg/dL (8.7-10.4) Total Protein 6.3 g/dL (5.7-8.2) LFT Test 12/16/24 06:55 Alanine Aminotransferase (ALT) 33 U/L (7-40) Alkaline Phosphatase 119 U/L (46-116) H Aspartate Amino Transferase (AST) 29 U/L (13-40) Total Bilirubin 1.3 mg/dL (0.2-1.0) H Urinalysis Test 12/15/24 05:50 Urine Color Light-yellow (Yellow) Urine Clarity Clear (Clear) Urine pH 5.0 (5.0-9.0) Urine Specific [place] 1.010 (1.001-1.035) Urine Protein Negative (Negative) Urine Ketones Negative (Negative) Urine Blood 2+ /uL (Negative) H Urine Nitrite Negative (Negative) Urine Bilirubin Negative (Negative) Urine Urobilinogen Normal mg/dL (Negative) Urine Leukocyte Esterase Negative /uL (Negative) Urine RBC 8 /hpf (0 - 3) Urine Microscopic WBC < 1 /HPF (0-3) Urine Squamous Epithelial Cells None seen /hpf (<5) Urine Bacteria None seen /hpf (None Seen) Urine Glucose Normal mg/dL (Normal) Labs and/or images reviewed: Labs reviewed by me, Image(s) reviewed by me Assessment/Plan Assessment/Plan Impression: -obstructive uropathy -prostatomegaly -dyslipidemia -primary hypertension -rule out UTI Plan: Discussed patient's HPI with the patient. He states that after the Muñoz catheter was placed his suprapubic pain has resolved. Patient does report having urinary frequency, more so noted at nighttime. Patient states he reported seeing a urologist in the past, but has not been treated. Discussion made with the patient regarding findings on CT scan. -continue Flomax and finasteride -urology consultation -continue antibiotic therapy -antihypertensives -DC planning once seen by Urology. Total time spent with patient discussing and formulating plan of care: 35 minutes. This medical document was created using an electronic medical record system with tabulate dictation system. Although this document has been carefully reviewed, there may still be some phonetic and typographical errors. These areas are purely typographical due to imperfections of the software programs, and do not reflect any compromise in the patient's medical care. Plan discussed with: Patient, Other (RN) My Orders Orders - SHEYLA FERRO NP Procedure Category Date Status Time * Urology Consult CONS 12/16/24 Transmitted 15:13 Date of Service: Dec 16, 2024 Billing Provider: SHEYLA FERRO NP Common Visit Codes: [id number] INP/OBS CARE(HIGH) SHEYLA FERRO NP Dec 16, 2024 16:02
--- NOTE | 2024-12-16 16:26 | DVHINCON2 ---
Date of service: Dec 16, 2024 Reason for Consultation retention of urine, quevedo in place History of Present Illness History Source: Patient, Old Records Exam Limitations: No limitations HPI 59 yo male history of elevated PSA, BPH, and UTIs. presents for urinary retention. Quevedo catheter in place, Pt was seen in office 02/2024 and was to have MP MRI done, he did not have imaging done and he has not followed up thus far. Home Meds Active Scripts Atorvastatin Calcium (Lipitor) 40 Mg Tab, 1 TAB PO DAILY, #90 TAB 1 Refill Prov:CORI SAINZ MD 07/27/22 Tamsulosin Hcl (Flomax) 0.4 Mg Cap, 1 CAP PO DAILY, #30 CAP 11 Refills Prov:CORI SAINZ MD 07/27/22 Discontinued Scripts Ciprofloxacin Hcl (Cipro) 500 Mg Tab, 1 TAB PO BID, #14 TAB Prov:CORI SAINZ MD 07/27/22 Past Medical History Patient Family History: Patient reports no known family medical history. H&P Exam Vital Signs Vital Signs Date Time Temp Pulse Resp B/P (MAP) Pulse Ox O2 Delivery O2 Flow Rate FiO2 12/16/24 13:00 98.1 72 18 127/82 (97) 95 98.1 12/16/24 08:00 Room Air* 0 21 Labs/Xrays Labs Test 12/16/24 06:55 12/15/24 07:05 12/15/24 05:50 Range/Units White Blood Count 8.9 # 4.4-10.8 10^3/uL Red Blood Count 4.73 4.5-5.90 10^6/uL Hemoglobin 15.1 13.5-17.5 g/dL Hematocrit 44.1 41.0-53.0 % Mean Corpuscular Volume 93.3 80.0-100.0 fL Mean Corpuscular Hemoglobin 31.9 28.0-32.0 pg Mean Corpuscular Hemoglobin Concent 34.3 32.0-36.0 g/dL Red Cell Distribution Width 13.5 11.8-14.3 % Platelet Count 154 140-450 10^3/uL Mean Platelet Volume 10.1 6.9-10.8 fL Neutrophils (%) (Auto) 76.7 37.0-80.0 % Lymphocytes (%) (Auto) 15.0 10.0-50.0 % Monocytes (%) (Auto) 5.4 0.0-12.0 % Eosinophils (%) (Auto) 2.7 0.0-7.0 % Basophils (%) (Auto) 0.2 0.0-2.0 % Neutrophils # (Auto) 6.8 1.6-8.6 10 ^3/uL Lymphocytes # (Auto) 1.3 0.4-5.4 10 ^3/uL Monocytes # (Auto) 0.5 0-1.3 10 ^3/uL Eosinophils # (Auto) 0.2 0-0.8 10 ^3/uL Basophils # (Auto) 0 0-0.2 10 ^3/uL Nucleated Red Blood Cells 0.1 % Sodium Level 139 136-145 mmol/L Potassium Level 4.3 3.5-5.1 mmol/L Chloride Level 106 98-107 mmol/L Carbon Dioxide Level 25 20-31 mmol/L Anion Gap 8 5-15 Blood Urea Nitrogen 16 9-23 mg/dL Creatinine 0.91 0.700-1.30 mg/dL Glomerular Filtration Rate Calc 97 >90 mL/min BUN/Creatinine Ratio 17.6 10.0-20.0 Serum Glucose 139 H 74-106 mg/dL Calcium Level 9.1 8.7-10.4 mg/dL Total Bilirubin 1.3 H 0.2-1.0 mg/dL Aspartate Amino Transferase (AST) 29 13-40 U/L Alanine Aminotransferase (ALT) 33 7-40 U/L Alkaline Phosphatase 119 H 46-116 U/L Total Protein 6.3 5.7-8.2 g/dL Albumin 3.9 3.2-4.8 g/dL Urine Color Light-yellow Yellow Urine Clarity Clear Clear Urine pH 5.0 5.0-9.0 Urine Specific [place] 1.010 1.001-1.035 Urine Protein Negative Negative Urine Ketones Negative Negative Urine Blood 2+ H Negative /uL Urine Nitrite Negative Negative Urine Bilirubin Negative Negative Urine Urobilinogen Normal Negative mg/dL Urine Leukocyte Esterase Negative Negative /uL Urine RBC 8 0 - 3 /hpf Urine Microscopic WBC < 1 0-3 /HPF Urine Squamous Epithelial Cells None seen <5 /hpf Urine Bacteria None seen None Seen /hpf Urine Glucose Normal Normal mg/dL Assessment/Plan Problem List: (1) Elevated prostate specific antigen [PSA] (2) Benign prostatic hyperplasia with lower urinary tract symptoms (3) Retention of urine, unspecified Plan d/c with quevedo f/u urology for further evaluation and treatment of elevated PSA/BPH Plan discussed with: Other LOIDA CRESPO NP Dec 16, 2024 16:26
[2024-12-17] VITALS (7 sets, daily range): BP systolic 111–121; BP diastolic 72–82; PULSE 70–117; RESP 18–20; TEMP 97.5–98.1; O2SAT 92–97
[2024-12-17 08:06] LABS: PSA Free 2.78 ng/mL; Prostate Specific Antigen 10.7 ng/mL (0.0-4.0)
[2024-12-17] MEDS ORDERED: FIN5T PO (15:01)
--- NOTE | 2024-12-17 15:05 | DVHDS2 ---
Discharge Summary Date of Admission Dec 15, 2024 at 09:36 Date of Discharge: Dec 17, 2024 Admitting Diagnosis Intractable abdominal pain Labs/Diagnostic Data: Laboratory Results Test 12/16/24 06:55 12/15/24 07:05 12/15/24 05:50 White Blood Count 8.9 10^3/uL (4.4-10.8) Red Blood Count 4.73 10^6/uL (4.5-5.90) Hemoglobin 15.1 g/dL (13.5-17.5) Hematocrit 44.1 % (41.0-53.0) Mean Corpuscular Volume 93.3 fL (80.0-100.0) Mean Corpuscular Hemoglobin 31.9 pg (28.0-32.0) Mean Corpuscular Hemoglobin Concent 34.3 g/dL (32.0-36.0) Red Cell Distribution Width 13.5 % (11.8-14.3) Platelet Count 154 10^3/uL (140-450) Mean Platelet Volume 10.1 fL (6.9-10.8) Neutrophils (%) (Auto) 76.7 % (37.0-80.0) Lymphocytes (%) (Auto) 15.0 % (10.0-50.0) Monocytes (%) (Auto) 5.4 % (0.0-12.0) Eosinophils (%) (Auto) 2.7 % (0.0-7.0) Basophils (%) (Auto) 0.2 % (0.0-2.0) Neutrophils # (Auto) 6.8 10 ^3/uL (1.6-8.6) Lymphocytes # (Auto) 1.3 10 ^3/uL (0.4-5.4) Monocytes # (Auto) 0.5 10 ^3/uL (0-1.3) Eosinophils # (Auto) 0.2 10 ^3/uL (0-0.8) Basophils # (Auto) 0 10 ^3/uL (0-0.2) Nucleated Red Blood Cells 0.1 % Sodium Level 139 mmol/L (136-145) Potassium Level 4.3 mmol/L (3.5-5.1) Chloride Level 106 mmol/L (98-107) Carbon Dioxide Level 25 mmol/L (20-31) Anion Gap 8 (5-15) Blood Urea Nitrogen 16 mg/dL (9-23) Creatinine 0.91 mg/dL (0.700-1.30) Glomerular Filtration Rate Calc 97 mL/min (>90) BUN/Creatinine Ratio 17.6 (10.0-20.0) Serum Glucose 139 mg/dL (74-106) Calcium Level 9.1 mg/dL (8.7-10.4) Total Bilirubin 1.3 mg/dL (0.2-1.0) Aspartate Amino Transferase (AST) 29 U/L (13-40) Alanine Aminotransferase (ALT) 33 U/L (7-40) Alkaline Phosphatase 119 U/L (46-116) Total Protein 6.3 g/dL (5.7-8.2) Albumin 3.9 g/dL (3.2-4.8) Free Prostate Specific Antigen 2.78 ng/mL (N/A) Percent Free Prostate Specific Ag 26.0 % (.) Prostate Specific Antigen Total 10.7 ng/mL (0.0-4.0) Urine Color Light-yellow (Yellow) Urine Clarity Clear (Clear) Urine pH 5.0 (5.0-9.0) Urine Specific [place] 1.010 (1.001-1.035) Urine Protein Negative (Negative) Urine Ketones Negative (Negative) Urine Blood 2+ /uL (Negative) Urine Nitrite Negative (Negative) Urine Bilirubin Negative (Negative) Urine Urobilinogen Normal mg/dL (Negative) Urine Leukocyte Esterase Negative /uL (Negative) Urine RBC 8 /hpf (0 - 3) Urine Microscopic WBC < 1 /HPF (0-3) Urine Squamous Epithelial Cells None seen /hpf (<5) Urine Bacteria None seen /hpf (None Seen) Urine Glucose Normal mg/dL (Normal) Other Laboratory Tests 12/16/24 06:55 Brief Hx & Hospital Course: History of Present Illness Simon Sanders is a 59-year-old male with past medical history of hypertension, hyperlipidemia, BPH, frequent UTIs, and bradycardia with pacemaker placed 4 years ago at [facility] who presents to the ED with suprapubic abdominal pain and urinary retention since 7:00 p.m. last night. Patient reports the pain as 10/10 intermittent and pressure-like. He states the last time he had this issue was several years ago. Patient denies any chest pain, shortness of breath, fever, chills, lightheadedness, dizziness, urinary frequency, urinary urgency, nausea, vomiting, and diarrhea. Course of hospitalization: Patient's pain has improved after placement of Muñoz catheter. Urology consultation has been placed. Patient was PSA is noted to be elevated. Recommendations were for the patient to be discharged home with a Muñoz catheter to leg bag and follow up as an outpatient with Urology for possible cystoscopy, with questionable TURP in the future. Patient was already prescribed tamsulosin, and we will also be prescribed finasteride 5 mg p.o. daily. Patient was agreeable with discharge plan. All questions answered. Physical examination General: Alert and Oriented x3. No acute distress. Well-nourished. Eyes: EOMI. Anicteric. HENT: Moist mucous membranes. Lungs: Clear to auscultation bilaterally. No accessory muscle use. Cardiovascular: Regular rate and rhythm. No murmur. No JVD. Abdomen: Soft, non-tender and non-distended. No palpable masses. Extremities: No edema. Non-tender. Skin: No rashes or lesions. Warm. Neurologic: No focal neurological deficits. CN II-XII grossly intact, but not individually tested. Psychiatric: Cooperative. Appropriate mood and affect. Total time spent with patient discussing and formulating plan of care: 35 minutes. This medical document was created using an electronic medical record system with Ev[employer] dictation system. Although this document has been carefully reviewed, there may still be some phonetic and typographical errors. These areas are purely typographical due to imperfections of the software programs, and do not reflect any compromise in the patient's medical care. Consults/Reason for consult Urology: Obstructive uropathy secondary to enlarged prostate Condition at Discharge: Fair Final Diagnosis/Problems List Obstructive Uropathy Secondary Diagnosis: -obstructive uropathy -prostatomegaly -dyslipidemia -primary hypertension -rule out UTI Discharge Disposition: Home Discharge Instruct/Medications Diet: Consistent carbohydrate, Cardiac 2g Na,low cholest Activity: No Restrictions, As Tolerated Follow Up/Referral: Urology in 2-3 weeks Medications: Flomax 0.4mg po daily Finesteride 5mg po daily Continue all home mediations 36 Discharge Statement: "Patient was advised to return to the ER or call 911 if any headaches, dizziness, shortness of breath, chest pain, abdominal pain, bleeding, fevers, or worsening of medical condition. Patient was counseled about treatment plan, medications, possible side effects, patientverbalized understanding. All questions were answered to the best of my ability. This discharge took greater then 30 minutes in planning, reviewing documentation, counseling the patient, and discussing with other team members." ASSESSMENT ASSESSMENT Assessment Obstructive Uropathy Date of Service: Dec 17, 2024 Billing Provider: SHEYLA FERRO NP Common Visit Codes: 65657-USQ/OBS DISCH DAY >30min SHEYLA FERRO NP Dec 17, 2024 15:05
== END 2024-12-17 19:19 | disposition home or self-care (01) | DRG 690 ==
LOC: ER 04:42 → OVERFLOW 09:36 → WEST WING 10:04
PROVIDERS: ATTEND Nurse Practitioner Acute Care
DX: N39.0 Urinary tract infection, site not specified (principal); N13.8 Other obstructive and reflux uropathy; N20.0 Calculus of kidney; N40.1 Benign prostatic hyperplasia with lower urinary tract symptoms; R33.8 Other retention of urine; I10 Essential (primary) hypertension; E78.5 Hyperlipidemia, unspecified; Z95.0 Presence of cardiac pacemaker; Z79.899 Other long term (current) drug therapy
CPT/HCPCS: 36415; 74176; 74177; 80048; 80053; 81001; 84154; 85025; 96365; G0378

== ENCOUNTER 2025-01-14 08:43 | Emergency (ER) | payer BC ==
[~2025-01-14] VITALS: Ht 170.2 cm; Wt 87.2 kg
[~2025-01-14 08:43] MED LIST changes: -CIPR-173 PO; +FIN5T PO
[2025-01-14 09:16] VITALS: BP 129/97; PULSE 97; RESP 20; TEMP 98.6; O2SAT 96
[2025-01-14 10:11] LABS: Urine Bacteria FEW /hpf (None Seen); Urine Blood 1+ /uL (Negative); Urine Clarity Clear (Clear); Urine Color Light-Yellow (Yellow); Urine Mucus FEW (None Seen); Urine Protein, UAD Negative (Negative); Urine Specific Gravity 1.017 (1.001-1.035); Urine Squamous Epithelial Cell None Seen /hpf (<5); Urine Urobilinogen Normal (Negative); Urine WBC 22 /HPF (0-3)
--- NOTE | 2025-01-14 10:23 | ED.PDOC ---
General HPI Comments A 59 YEAR OLD MALE PRESENTS TO THE ED WITH COMPLAINT OF UTI SYMPTOMS AND REQUEST FOR VÁZQUEZ CATHETER PLACEMENT. PATIENT STATES HE HAD A VÁZQUEZ CATHETER IN PLACE IN THE PAST 6 MONTHS AND NOTES IT WAS REMOVED YESTERDAY. PATIENT REPORTS WHEN HE GOT HOME YESTERDAY HE BEGAN TO EXPERIENCE DYSURIA AND URINARY RETENTION, PROMPTING HIM TO COME TO THE ED TODAY. PATIENT IS REQUESTING THAT A VÁZQUEZ CATHETER BE PLACED ONCE AGAIN SINCE HE WAS EXPERIENCING URINARY RETENTION. PATIENT DENIES HEMATURIA, FLANK PAIN, FEVER, CHILLS, SHORTNESS OF BREATH, CHEST PAIN, ABDOMINAL PAIN, NAUSEA, VOMITING, HEADACHE, OR OTHER COMPLAINTS. NO OTHER SYMPTOMS OR MODIFYING FACTORS AT THIS TIME. PATIENT IS ALERT, ORIENTED X 4, AND HAS STEADY GAIT. Chief Complaint: Urinary Time Seen by MD: 08:57 Primary Care Provider: None Reviewed notes: Nurses Notes, Medications, Allergies Allergies: Coded Allergies: No Known Drug Allergy (Verified Allergy, Unknown, 07/25/22) Home Meds Active Scripts Ciprofloxacin Hcl (Cipro) 500 Mg Tab, 1 TAB PO BID, #20 TAB Prov:JUVENTINO RYAN PA 01/14/25 Finasteride (Finasteride) 5 Mg Tab, 5 MG PO DAILY for 30 Days, #30 TAB Prov:SHEYLA FERRO RESEARCH SCHOLAR 12/17/24 Atorvastatin Calcium (Lipitor) 40 Mg Tab, 1 TAB PO DAILY, #90 TAB 1 Refill Prov:CORI SAINZ MD 07/27/22 Tamsulosin Hcl (Flomax) 0.4 Mg Cap, 1 CAP PO DAILY, #30 CAP 11 Refills Prov:CORI SAINZ MD 07/27/22 Information Source: Patient Mode of Arrival: Ambulatory Severity: Moderate Inability to void: None Timing: Days Duration: Since onset, Days Prehospital treatment: None Symptoms: Dysuria, Inability to void History of: UTI Location: None Penile discharge: None Modifying factors: None associated signs and symptoms: Dysuria Past Medical History PAST MEDICAL HISTORY: High Lipids, UTI'S Surgical History: Pacemaker Family History Family History: Reviewed,noncontributory to illness Social History Smoker: Non-Smoker Alcohol: Denies ETOH Use, Unknown Drugs: Denies Drug Use Lives In: Home Constitutional: denies: chills, diaphoresis, fatigue, fever, malaise, sweats, weakness, others EENTM: denies: blurred vision, double vision, ear bleeding, ear discharge, ear drainage, ear pain, ear ringing, eye pain, eye redness, hearing loss, mouth pain, mouth swelling, nasal discharge, nose bleeding, nose congestion, nose pain, photophobia, tearing, throat pain, throat swelling, voice changes, others Respiratory: denies: cough, hemoptysis, orthopnea, SOB at rest, shortness of breath, SOB with excertion, stridor, wheezing, others Cardiovascular: denies: chest pain, dizzy spells, diaphoresis, Dyspnea on exertion, edema, irregular heart beat, left arm pain, lightheadedness, palpitations, PND, syncope, others Gastrointestinal: denies: abdomen distended, abdominal pain, blood streaked bowels, constipated, diarrhea, dysphagia, difficulty swallowing, hematemesis, melena, nausea, poor appetite, poor fluid intake, rectal bleeding, rectal pain, vomiting, others Genitourinary: reports: burning, dysuria, others (RETENTION); denies: flank pain, frequency, hematuria, incontinence, penile discharge, penile sore, pain, testicle pain, testicle swelling, urgency Neurological: denies: dizziness, fainting, headache, left sided numbness, left sided weakness, numbness, paresthesia, pre-existing deficit, right sided numbness, right sided weakness, seizure, speech problems, tingling, tremors, weakness, others Musculoskeletal: denies: back pain, gout, joint pain, joint swelling, muscle pain, muscle stiffness, neck pain, others Integumetry: denies: bruises, change in color, change in hair/nails, dryness, laceration, lesions, lumps, rash, wounds, others Allergic/Immunocompromised: denies: Difficulty Healing, Frequent Infections, Hives, Itching, others Hematologic/Lymphatic: denies: anemia, blood clots, easy bleeding, easy bruising, swollen glands, others Endocrine: denies: excessive hunger, excessive sweating, excessive thirst, excessive urination, flushing, intolerance to cold, intolerance to heat, unexplained weight gain, unexplained weight loss, others Psychiatric: denies: anxiety, bipolar disorder, depression, hopeless, panic disorder, schizophrenia, sleepless, suicidal, others All Other Systems: Reviewed and Negative Physical Exam General Appearance: No Apparent Distress, Obese HEENT: Normal ENT Inspection, PERRL/EOMI, Pharynx Normal, TMs Normal Neck: Full Range of Motion, Non-Tender, Normal, Normal Inspection Respiratory: Chest Non-Tender, Lungs Clear, No Accessory Muscle Use, No Respiratory Distress, Normal Breath Sounds Cardiovascular: No Edema, No JVD, No Murmur, No Gallop, Normal Peripheral Pulses, Regular Rate/Rhythm Breast Exam: Deferred Gastrointestinal: No Organomegaly, Non Tender, No Pulsatile Mass, Normal Bowel Sounds, Soft Genitalia: Deferred Pelvic: Deferred Rectal: Deferred Extremities: No calf tenderness, Normal capillary refill, Normal inspection, Normal range of motion, Non-tender, No pedal edema Musculoskeletal : Apperance: Normal Neurologic: Alert, squeegeer and former II-XII nml as Tested, No Motor Deficits, Normal Affect, Normal Mood, No Sensory Deficits Cerebellar Function: Normal Reflexes: Normal Skin: Dry, Normal Color, Warm Peripheral Pulses: 2+ carotid (R), 2+ carotid (L) Lymphatic: No Adenopathy Was a procedure done? Was a procedure done?: No Differential Diagnosis Kidney stone (Female): N/A Penile/Scrotal: N/A Urinary Problem (Male): Urinary Retention, Urolithiasis, UTI Urinary Problem (Female): N/A X-Ray, Labs, Meds, VS Vital Signs Date Time Temp Pulse Resp B/P (MAP) Pulse Ox O2 Delivery O2 Flow Rate FiO2 01/14/25 09:16 98.6 97 20 129/97 (108) 96 98.6 01/14/25 09:16 97 20 96 Room Air 01/14/25 08:56 98.6 97 20 124/97 (106) 96 Lab Test 01/14/25 09:45 Range/Units Urine Color Light-yellow Yellow Urine Clarity Clear Clear Urine pH 5.0 5.0-9.0 Urine Specific [place] 1.017 1.001-1.035 Urine Protein Negative Negative Urine Ketones Negative Negative Urine Blood 1+ H Negative /uL Urine Nitrite Negative Negative Urine Bilirubin Negative Negative Urine Urobilinogen Normal Negative mg/dL Urine Leukocyte Esterase 2+ Negative /uL Urine RBC 33 0 - 3 /hpf Urine Microscopic WBC 22 H 0-3 /HPF Urine Squamous Epithelial Cells None seen <5 /hpf Urine Bacteria Few H None Seen /hpf Urine Mucus Few None Seen Urine Glucose Normal Normal mg/dL X-Ray, Labs, Meds, VS Comment EXTERNAL MEDICAL RECORDS REVIEWED: [NONE] INDEPENDENT HISTORIANS: [NONE] SOCIAL DETERMINANTS OF HEALTH: [NONE] LABS ORDERED: UA REVIEWED AND INTERPRETED RESULTS: LEUKOCYTES 2+, WBC 22 IMAGING ORDERED: NONE TREATMENTS ORDERED: VÁZQUEZ CATHETER PLACEMENT, 500ML URINE OUTPUT. PROCEDURES PERFORMED: NONE CRITICAL CARE TIME: NONE I HAVE DISCUSSED THE PATIENT WITH THE ATTENDING PHYSICIAN DR. DELCID AND HE AGREES WITH THE PATIENT'S PLAN OF CARE AND DISPOSITION. BASED ON HISTORY OF PRESENT ILLNESS, AND PHYSICAL EXAM, PATIENT WILL BE DISCHARGED HOME. SHARED DECISION MAKING: PATIENT INSTRUCTED TO FOLLOW UP WITH PRIMARY CARE PROVIDER IN 1-2 DAYS FOR RE-EVALUATION OF SYMPTOMS. PATIENT VERBALIZES UNDERSTANDING TO RETURN TO ED FOR NEW OR WORSENING SYMPTOMS OR IF FOLLOW UP WITH PCP CANNOT BE OBTAINED. PATIENT FEELS COMFORTABLE GOING HOME AT THIS TIME. ALL QUESTIONS ADDRESSED AT TIME OF DISCHARGE. Time of 1ST Reevaluation: 10:30 Reevaluation 1ST: Improved Patient Education/Counseling: Diagnosis, Treatment, Need For Follow Up Family Education/Counseling: Diagnosis, Treatment, Need For Follow Up Medical Screening: No EMC Exist At This Time Departure 1 Departure Time of Disposition: 10:30 Impression: Primary Impression: Acute UTI (urinary tract infection) Additional Impression: Encounter for Vázquez catheter replacement Disposition: HOME / SELF CARE / HOMELESS Condition: Stable Additional Instructions: FOLLOW-UP WITH PCP IN 1 TO 2 DAYS. TAKE MEDICATIONS PRESCRIBED. RETURN TO ED FOR ANY NEW OR WORSENING SYMPTOMS. e-Prescriptions Ciprofloxacin Hcl (Cipro) 500 Mg Tab 1 TAB PO BID, #20 TAB Prov: JUVENTINO RYAN 01/14/25 Discharged With: Self Critical Care Note Critical Care Time?: No Stability Stability form required: No I personally scribed for JUVENTINO RYAN ([email or web address]) on 01/14/25 at 10:23. Electronically submitted by Isaac Sanders ([email or web address]). JUVENTINO RYAN Jan 14, 2025 10:23
[2025-01-14] MEDS ORDERED: CIPR-173 PO (10:27)
== END 2025-01-14 10:31 | disposition home or self-care (01) ==
LOC: ER 08:43
DX: N39.0 Urinary tract infection, site not specified (principal); E78.5 Hyperlipidemia, unspecified; Z46.6 Encounter for fitting and adjustment of urinary device; Z79.899 Other long term (current) drug therapy; Z87.440 Personal history of urinary (tract) infections; Z95.0 Presence of cardiac pacemaker
CPT/HCPCS: 51702; 81001

== ENCOUNTER 2025-02-28 13:53 | Emergency (ER) | payer BC ==
[~2025-02-28] VITALS: Ht 177.8 cm; Wt 85.1 kg
[~2025-02-28 13:53] MED LIST changes: +CIPR-173 PO
--- NOTE | 2025-02-28 15:04 | ED.PDOC ---
History of Present Illness HPI Comments 59 y/o M, with a Hx of bradycardia s/p pacemaker, BPH, and HLD, presents with c/o urinary retention and penile pain, today. Patient reports having a Muñoz catheter placed for his BPH 3-4x weeks ago and it not draining, with associated irritation around insertion site. He denies any hematuria, fever, chills, or other associated symptoms or modifiers at this time. Chief Complaint: Urinary Time Seen by MD: 14:25 Primary Care Provider: denies Reviewed Notes: Nurses Notes, Medications, Allergies Allergies: Coded Allergies: No Known Drug Allergy (Verified Allergy, Unknown, 07/25/22) Home Meds Active Scripts Ciprofloxacin Hcl (Cipro) 500 Mg Tab, 1 TAB PO BID, #10 TAB Prov:OFELIA DELCID MD 02/28/25 Ciprofloxacin Hcl (Cipro) 500 Mg Tab, 1 TAB PO BID, #20 TAB Prov:JUVENTINO RYAN PA 01/14/25 Finasteride (Finasteride) 5 Mg Tab, 5 MG PO DAILY for 30 Days, #30 TAB Prov:SHEYLA FERRO NP 12/17/24 Atorvastatin Calcium (Lipitor) 40 Mg Tab, 1 TAB PO DAILY, #90 TAB 1 Refill Prov:CORI SAINZ MD 07/27/22 Tamsulosin Hcl (Flomax) 0.4 Mg Cap, 1 CAP PO DAILY, #30 CAP 11 Refills Prov:CORI SAINZ MD 07/27/22 Information Source: Patient Mode of Arrival: Ambulatory Severity: Moderate Timing: Days Duration: Since onset Prehospital treatment: None Past Medical History PAST MEDICAL HISTORY: High Lipids, UTI'S Past Medical History (Other): BPH, bradycardia Surgical History: Pacemaker Surgical History (Other): Muñoz catheter Family History Family History: Reviewed,noncontributory to illness Social History Smoker: Non-Smoker Alcohol: Denies ETOH Use, Unknown Drugs: Denies Drug Use Lives In: Home Constitutional: denies: chills, diaphoresis, fatigue, fever, malaise, sweats, weakness, others EENTM: denies: blurred vision, double vision, ear bleeding, ear discharge, ear drainage, ear pain, ear ringing, eye pain, eye redness, hearing loss, mouth pain, mouth swelling, nasal discharge, nose bleeding, nose congestion, nose pain, photophobia, tearing, throat pain, throat swelling, voice changes, others Respiratory: denies: cough, hemoptysis, orthopnea, SOB at rest, shortness of b reath, SOB with excertion, stridor, wheezing, others Cardiovascular: denies: chest pain, dizzy spells, diaphoresis, Dyspnea on exertion, edema, irregular heart beat, left arm pain, lightheadedness, palpitations, PND, syncope, others Gastrointestinal: denies: abdomen distended, abdominal pain, blood streaked bowels, constipated, diarrhea, dysphagia, difficulty swallowing, hematemesis, melena, nausea, poor appetite, poor fluid intake, rectal bleeding, rectal pain, vomiting, others Genitourinary: reports: pain (penile pain at Muñoz's insertion site ), others (urine retention); denies: burning, dysuria, flank pain, frequency, hematuria, incontinence, penile discharge, penile sore, testicle pain, testicle swelling, urgency Neurological: denies: dizziness, fainting, headache, left sided numbness, left sided weakness, numbness, paresthesia, pre-existing deficit, right sided numbness, right sided weakness, seizure, speech problems, tingling, tremors, weakness, others Musculoskeletal: denies: back pain, gout, joint pain, joint swelling, muscle pain, muscle stiffness, neck pain, others Integumetry: denies: bruises, change in color, change in hair/nails, dryness, laceration, lesions, lumps, rash, wounds, others Allergic/Immunocompromised: denies: Difficulty Healing, Frequent Infections, Hives, Itching, others Hematologic/Lymphatic: denies: anemia, blood clots, easy bleeding, easy bruising, swollen glands, others Endocrine: denies: excessive hunger, excessive sweating, excessive thirst, excessive urination, flushing, intolerance to cold, intolerance to heat, unexplained weight gain, unexplained weight loss, others Psychiatric: denies: anxiety, bipolar disorder, depression, hopeless, panic disorder, schizophrenia, sleepless, suicidal, others All Other Systems: Reviewed and Negative Physical Exam General Appearance: Moderate Distress HEENT: Normal ENT Inspection, Pharynx Normal, TMs Normal Neck: Full Range of Motion, Non-Tender, Normal, Normal Inspection Respiratory: Chest Non-Tender, Lungs Clear, No Accessory Muscle Use, No R espiratory Distress, Normal Breath Sounds Cardiovascular: No Edema, No JVD, No Murmur, No Gallop, Normal Peripheral Pulses, Regular Rate/Rhythm Breast Exam: Deferred Gastrointestinal: No Organomegaly, No Pulsatile Mass, Normal Bowel Sounds, Soft, Suprapubic, Tenderness Genitalia: Deferred Pelvic: Deferred Rectal: Deferred Extremities: No calf tenderness, Normal capillary refill, Normal inspection, Normal range of motion, Non-tender, No pedal edema Musculoskeletal : Apperance: Normal Neurologic: Alert, environmental quality analyst II-XII nml as Tested, No Motor Deficits, Normal Affect, Normal Mood, No Sensory Deficits Cerebellar Function: Normal Reflexes: Normal Skin: Dry, Normal Color, Warm Lymphatic: No Adenopathy Was a procedure done? Was a procedure done?: No Differential Dx Considerations may include: Muñoz catheter complication, UTI, kidney stones, ureteral stone, among others X-Ray, Labs, Meds, VS Vital Signs Date Time Temp Pulse Resp B/P (MAP) Pulse Ox O2 Delivery O2 Flow Rate FiO2 02/28/25 14:10 97.9 66 18 146/92 (110) 95 97.9 Current Medications Medications (Trade) Dose Ordered Sig/Syeda Route Start Time Stop Time Status Last Admin Lidocaine HCl (Lidocaine HCl Jelly) 5 ml ONCE ONCE TOP 02/28/25 20:15 02/28/25 20:16 DC 02/28/25 20:36 The patient was unable to urinate We change the Muñoz catheter without any difficulty. The patient put out almost 2 L of urine The patient was being discharged on Cipro and it was to continue taking his Flomax The Muñoz catheter was then changed to a leg bag The patient was being discharged. Time of 1ST Reevaluation: 14:55 Reevaluation 1ST: Unchanged Patient Education/Counseling: Diagnosis, Treatment, Prognosis, Need For Follow Up Family Education/Counseling: No Family Present Departure 1 Departure Time of Disposition: 20:39 Impression: Primary Impression: Acute UTI (urinary tract infection) Additional Impressions: Encounter for Muñoz catheter replacement Benign prostatic hyperplasia with lower urinary tract symptoms Qualified Codes: N40.1 - Benign prostatic hyperplasia with lower urinary tract symptoms; R33.8 - Other retention of urine Disposition: 01 HOME / SELF CARE / HOMELESS Condition: Fair e-Prescriptions Ciprofloxacin Hcl (Cipro) 500 Mg Tab 1 TAB PO BID, #10 TAB Prov: FARHANA,OFELIA B MD 02/28/25 Discharged With: Self Critical Care Note Critical Care Time?: No Stability Stability form required: No Heart Score Heart Score: Heart Score Response (Comments) Value History N/A 0 EKG N/A 0 Age N/A 0 Risk Factors N/A 0 Troponin N/A 0 Total 0 I personally scribed for OFELIA DELCID MD ([email or web address]) on 02/28/25 at 15:04. Electronically submitted by Rg Macdonald ([email or web address]). OFELIA DELCID MD Feb 28, 2025 15:04
[2025-02-28] MEDS: LIDOCAINE 2% TOPICAL JELLY 5 ML URJT TOP ONE (20:36)
[2025-02-28] MEDS ORDERED: CIPR-173 PO (20:39)
[2025-02-28 20:52] VITALS: BP 135/85; PULSE 74; RESP 16; TEMP 99.2; O2SAT 95
[2025-02-28 21:17] LABS: Urine Bacteria MANY /hpf (None Seen); Urine Blood 2+ /uL (Negative); Urine Clarity Ex.Turbid (Clear); Urine Color Light-Orange (Yellow); Urine Protein, UAD 2+ (Negative); Urine Specific Gravity 1.022 (1.001-1.035); Urine Squamous Epithelial Cell FEW /hpf (<5); Urine Urobilinogen 3 mg/dL (Negative); Urine WBC 696 /HPF (0-3); Urine pH 7.5 (5.0-9.0)
== END 2025-02-28 20:53 | disposition home or self-care (01) ==
LOC: ER 13:53
DX: N39.0 Urinary tract infection, site not specified (principal); N40.1 Benign prostatic hyperplasia with lower urinary tract symptoms; Z46.6 Encounter for fitting and adjustment of urinary device; E78.5 Hyperlipidemia, unspecified; Z79.899 Other long term (current) drug therapy; Z95.0 Presence of cardiac pacemaker
CPT/HCPCS: 51702; 81001

== ENCOUNTER → 2025-03-15 | Outpatient (CLI) | payer BC ==
[2025-03-15 10:45] LABS: Urine Bacteria FEW /hpf (None Seen); Urine Blood 3+ /uL (Negative); Urine Clarity Turbid (Clear); Urine Color Light-Orange (Yellow); Urine Mucus FEW (None Seen); Urine Protein, UAD 2+ (Negative); Urine Specific Gravity 1.027 (1.001-1.035); Urine Squamous Epithelial Cell FEW /hpf (<5); Urine Urobilinogen Normal (Negative); Urine WBC 231 /HPF (0-3); Urine pH 5.5 (5.0-9.0)
== END | disposition home or self-care (01) ==
LOC: LAB 10:21
PROVIDERS: ATTEND Urology
DX: N39.0 Urinary tract infection, site not specified (principal)
CPT/HCPCS: 81001; 87086

== ENCOUNTER → 2025-03-24 | Day surgery (SDC) | payer BC ==
[2025-03-23 16:00] LABS: Basophils # (auto) 0 10 ^3/uL (0-0.2); Basophils % (auto) 0.4 % (0.0-2.0); Eosinophils # (auto) 0.3 10 ^3/uL (0-0.8); Eosinophils % (auto) 3.2 % (0.0-7.0); Hematocrit 44.3 % (41.0-53.0); Hemoglobin 15.4 g/dL (13.5-17.5); Lymphocytes # (auto) 1.4 10 ^3/uL (0.4-5.4); Lymphocytes % (auto) 15.9 % (10.0-50.0); Mean Corpuscular Hemoglobin 31.5 pg (28.0-32.0); Mean Corpuscular Hgb Conc. 34.8 g/dL (32.0-36.0); Mean Corpuscular Volume 90.5 fL (80.0-100.0); Monocytes # (auto) 0.7 10 ^3/uL (0-1.3); Monocytes % (auto) 8.2 % (0.0-12.0); Neutrophils # (auto) 6.5 10 ^3/uL (1.6-8.6); Neutrophils % (auto) 72.3 % (37.0-80.0); Platelet Count (auto) 149 10^3/uL (140-450); Red Blood Cells 4.89 10^6/uL (4.5-5.90); Red Cell Distribution Width 13.3 % (11.8-14.3)
[2025-03-23 16:06] LABS: Alanine Aminotransferase 22 U/L (7-40); Albumin 4.4 g/dL (3.2-4.8); Anion Gap 6 (5-15); Aspartate Aminotransferase 18 U/L (13-40); BUN/Creatinine Ratio 16.1 (10.0-20.0); Bilirubin, Total 0.8 mg/dL (0.2-1.0); Blood Urea Nitrogen 14 mg/dL (9-23); Calcium 8.9 mg/dL (8.7-10.4); Carbon Dioxide 27 mmol/L (20-31); Glucose 98 mg/dL (74-106); Sodium 141 mmol/L (136-145); Total Protein 7.4 g/dL (5.7-8.2)
[2025-03-23 16:14] LABS: Alkaline Phosphatase 125 U/L (46-116); Chloride 108 mmol/L (98-107)
[2025-03-23 16:20] LABS: INR 1.19 (0.9-1.15); Partial Thromboplastin Time 26.5 SEC (24.5-34.5); Prothrombin Time 12.4 sec (9.3-11.8)
[~2025-03-24] VITALS: Ht 177.8 cm; Wt 85.7 kg
[~2025-03-24] MED LIST changes: +ACETAMINOPHEN IV 1000 MG/100ML (10MG/ML) IV PRN; -CIPR-173 PO; +DexAMETHasone SOD PHOS 10MG/1ML VIAL INJ ONE; -FIN5T PO; +HYDROmorphone HCL 2 MG/ML VL/or syr IV PRN; +MEPERIDINE HCL (25 MG/ML) 1ML VIAL IV PRN; +ONDANSETRON HCL 4 MG/2 ML VIAL IV ONE; +ONDANSETRON HCL 4 MG/2 ML VIAL ONE; +PHENYLEPHRINE HCL 10 MG/ML VL ONE; +PROPOFOL 10 MG/ML 20 ML IV ONE; -TAMS-35 PO; +fentaNYL CITRATE 100 MCG/2 ML VL ONE
[2025-03-24 06:58] LABS: Urine Bacteria FEW /hpf (None Seen); Urine Blood 2+ /uL (Negative); Urine Clarity Turbid (Clear); Urine Color Light-Orange (Yellow); Urine Mucus FEW (None Seen); Urine Protein, UAD 1+ (Negative); Urine Specific Gravity 1.024 (1.001-1.035); Urine Squamous Epithelial Cell None Seen /hpf (<5); Urine Urobilinogen Normal (Negative); Urine WBC 315 /HPF (0-3); Urine pH 6.5 (5.0-9.0)
[2025-03-24] MEDS: CIPROFLOXACIN 400MG/200ML 200 ML IV ONE (07:50)
[2025-03-24 08:33] VITALS: TEMP 97; O2SAT 100
--- NOTE | 2025-03-24 08:36 | DVHNC2 ---
Procedure - OPERATIVE REPORT Pre-op. Diagnosis: LUTS/BPH/Urinary retention ELEVATED PSA (10.6 in 11/2023) Post-op. Diagnosis: LUTS/BPH/Urinary retention ELEVATED PSA Bladder calculi Operation: Cystoscopy with bladder stones removal TRUS prostate biopsy Anesthesia: General Indications: Patient with history of elevated PSA, s/p TRUS prostate biopsy that was negative, who had an increase in PSA. Patient also has history of lower urinary tract symptoms with hesitancy, occasional straining, incomplete bladder emptying, nocturia. Benefits and risks of procedures were discussed with the patient who understood and agreed with surgery. Details of Procedure: Patient was brought to the OR and placed in supine position in the OR table. Anesthesia was induced and patient was placed in lithotomy position. He was pre pped and draped in sterile fashion. Using a 21 Fr. rigid cystoscope with a 30 degree lens we entered the urethra and in to the bladder. The prostate was found to be enlarged with prostatic urethra of 5 cm. The bladder was found to have moderate trabeculations, and multiple stones were found. Using grasping forceps, some of the stones were crushed and removed by irrigation. The bladder was emptied and Muñoz catheter was replaced. At this point using an ultrasound probe with a biopsy guide we proceeded to en ter the rectum. The prostate was measured as 170 cc. There were few hypoechoic areas. At this point we proceeded to take 12 cores samples from the prostate from the right base lateral, right base medial, right mid lateral, right mid medial, right apex lateral, right apex medial and subsequently the same areas on the left. Patient tolerated the procedure well and was transferred to recovery awake and in stable conditions. Specimens: Prostate tissue from the above areas total of 12 cores Complications: None Findings: As above Notes: Depending on prostate biopsy results we will make a final decision about LUTS/BPH management. His prostate is 170 grams. If biopsy negative patient will benefit from Prostate Artery Embolization vs. Greenlight Laser Enucleation of the prostate vs. TURP. If positive for prostate cancer will discuss options with the patient. SAMREEN YATES MD March 24, 2025 08:36
--- NOTE | 2025-03-24 08:36 | DVHDS2 ---
New Physician D'charge PN Admitting Diagnosis Admitting Diagnosis BPH Elevated PSA Urinary retention Bladder stones Discharge Diagnosis same Operations or Procedures Cystolithotomy TRUS/PNBX Reason(s) For Hospitalization Surgery Treatment Plan Discharge Condition of Discharge Good Disposition Home Discharge Instructions Diet: Regular Activity: Light activity Activity comment: Muñoz care Medications: given Follow Up Care Follow Up/Referral: 2 weeks for pathology results Discharge Statement: "Patient was advised to return to the ER or call 911 if any headaches, dizziness, shortness of breath, chest pain, abdominal pain, bleeding, fevers, or worsening of medical condition. Patient was counseled about treatment plan, medications, possible side effects, patient�verbalized understanding. All questions were answered to the best of my ability. This discharge took greater then 30 minutes in planning, reviewing document ation, counseling the patient, and discussing with other team members." SAMREEN YATES MD March 24, 2025 08:36
[2025-03-24 10:35] VITALS: BP 142/92; PULSE 76; RESP 12; O2SAT 96
== END | disposition home or self-care (01) ==
LOC: SUR 06:18
PROVIDERS: ATTEND Urology
DX: N21.0 Calculus in bladder (principal); R97.20 Elevated prostate specific antigen [PSA]; N40.1 Benign prostatic hyperplasia with lower urinary tract symptoms; R33.8 Other retention of urine; N41.1 Chronic prostatitis; N41.2 Abscess of prostate; N32.89 Other specified disorders of bladder; R39.11 Hesitancy of micturition; R39.14 Feeling of incomplete bladder emptying; R39.16 Straining to void; R35.1 Nocturia
CPT/HCPCS: 36415; 52310; 55700; 80053; 81001; 82360; 85025; 85610; 85730; 87086; A4315; A4344; J0744; J1100; J2371; J2405; J2704; J3010; J7030; 76872

== ENCOUNTER 2025-05-07 21:46 | Emergency (ER) | payer BC ==
[~2025-05-07] VITALS: Ht 177.8 cm; Wt 83.7 kg
[~2025-05-07 21:46] MED LIST changes: -ACETAMINOPHEN IV 1000 MG/100ML (10MG/ML) IV PRN; -DexAMETHasone SOD PHOS 10MG/1ML VIAL INJ ONE; -HYDROmorphone HCL 2 MG/ML VL/or syr IV PRN; -MEPERIDINE HCL (25 MG/ML) 1ML VIAL IV PRN; -ONDANSETRON HCL 4 MG/2 ML VIAL IV ONE; -ONDANSETRON HCL 4 MG/2 ML VIAL ONE; -PHENYLEPHRINE HCL 10 MG/ML VL ONE; -PROPOFOL 10 MG/ML 20 ML IV ONE; -fentaNYL CITRATE 100 MCG/2 ML VL ONE
[2025-05-07] MEDS: cefTRIAXone SOD 1,000 MG VL IM ONE (22:31)
[2025-05-07 22:41] LABS: Urine Bacteria MANY /hpf (None Seen); Urine Blood 2+ /uL (Negative); Urine Clarity Ex.Turbid (Clear); Urine Color Brown (Yellow); Urine Mucus FEW (None Seen); Urine Protein, UAD 1+ (Negative); Urine Squamous Epithelial Cell None Seen /hpf (<5); Urine Urobilinogen Normal (Negative); Urine WBC 4114 /HPF (0-3); Urine WBC Clumps PRESENT /hpf (None Seen); Urine pH 5.5 (5.0-9.0)
[2025-05-07] MEDS: LIDOCAINE 2% JELLY 11ml (GLYDO) UR ONE (22:41)
[2025-05-07] MEDS ORDERED: CIPR-173 PO (22:45)
--- NOTE | 2025-05-07 22:46 | ED.PDOC ---
General HPI Comments C/C: URINARY PAIN AND RETENTION. PATIENT STATES THAT HE HAD A VÁZQUEZ REMOVED YESTERDAY AFTER HAVING IT FOR A MONTH DUE TO PROSTATE PROBLEMS AND HAS HAD SEVERE PAIN SINCE. ALL VSS. PATIENT REPORTS HAS FOLLOW UP WITH HIS UROLOGIST HERE AT [facility] NEXT WEEK ON FRIDAY. DENIES FEVER, CHILLS, NAUSEA OR VOMITING NOTES NO FLANK PAIN. Chief Complaint: Urinary Time Seen by MD: 21:57 Primary Care Provider: denies Reviewed notes: Nurses Notes, Medications, Allergies Allergies: Coded Allergies: No Known Drug Allergy (Verified Allergy, Unknown, 07/25/22) Home Meds Active Scripts Ciprofloxacin Hcl (Cipro) 500 Mg Tab, 500 MG PO BID for 14 Days, #28 TAB Prov:MUMTAZ COLE 05/07/25 Atorvastatin Calcium (Lipitor) 40 Mg Tab, 1 TAB PO DAILY, #90 TAB 1 Refill Prov:CORI SAINZ MD 07/27/22 Information Source: Patient Mode of Arrival: Ambulatory Past Medical History PAST MEDICAL HISTORY: High Lipids, UTI'S Surgical History: Pacemaker Family History Family History: Reviewed,noncontributory to illness Social History Smoker: Non-Smoker Alcohol: Denies ETOH Use, Unknown Drugs: Denies Drug Use Lives In: Home Constitutional: denies: chills, diaphoresis, fatigue, fever, malaise, sweats, weakness, others EENTM: denies: blurred vision, double vision, ear bleeding, ear discharge, ear drainage, ear pain, ear ringing, eye pain, eye redness, hearing loss, mouth pain, mouth swelling, nasal discharge, nose bleeding, nose congestion, nose pain, photophobia, tearing, throat pain, throat swelling, voice changes, others Respiratory: denies: cough, hemoptysis, orthopnea, SOB at rest, shortness of breath, SOB with excertion, stridor, wheezing, others Cardiovascular: denies: chest pain, dizzy spells, diaphoresis, Dyspnea on exertion, edema, irregular heart beat, left arm pain, lightheadedness, palpitations, PND, syncope, others Gastrointestinal: denies: abdomen distended, abdominal pain, blood streaked bowels, constipated, diarrhea, dysphagia, difficulty swallowing, hematemesis, melena, nausea, poor appetite, poor fluid intake, rectal bleeding, rectal pain, vomiting, others Genitourinary: reports: pain; denies: burning, dysuria, flank pain, frequency, hematuria, incontinence, penile discharge, penile sore, testicle pain, testicle swelling, urgency, others Neurological: denies: dizziness, fainting, headache, left sided numbness, left sided weakness, numbness, paresthesia, pre-existing deficit, right sided numbness, right sided weakness, seizure, speech problems, tingling, tremors, weakness, others Musculoskeletal: denies: back pain, gout, joint pain, joint swelling, muscle pain, muscle stiffness, neck pain, others Integumetry: denies: bruises, change in color, change in hair/nails, dryness, laceration, lesions, lumps, rash, wounds, others Allergic/Immunocompromised: denies: Difficulty Healing, Frequent Infections, Hives, Itching, others Hematologic/Lymphatic: denies: anemia, blood clots, easy bleeding, easy bruising, swollen glands, others Endocrine: denies: excessive hunger, excessive sweating, excessive thirst, excessive urination, flushing, intolerance to cold, intolerance to heat, unexplained weight gain, unexplained weight loss, others Psychiatric: denies: anxiety, bipolar disorder, depression, hopeless, panic disorder, schizophrenia, sleepless, suicidal, others Physical Exam General Appearance: No Apparent Distress, Normal HEENT: Pharynx Normal Neck: Full Range of Motion, Non-Tender Respiratory: Lungs Clear, No Respiratory Distress, Normal Breath Sounds Cardiovascular: No Murmur, Normal Peripheral Pulses, Regular Rate/Rhythm Breast Exam: Deferred Gastrointestinal: Non Tender, Soft, Suprapubic (MODERATE SUPRAPUBIC TENDERNESS ON PALPATION NEGATIVE CVA TENDERNESS) Genitalia: Deferred Pelvic: Deferred Rectal: Deferred Extremities: Normal inspection, Normal range of motion Musculoskeletal : Apperance: Normal Neurologic: Alert, No Motor Deficits, Normal Affect, Normal Mood, No Sensory Deficits Cerebellar Function: Normal Reflexes: Normal Skin: Dry, Normal Color, Warm Lymphatic: No Adenopathy Was a procedure done? Was a procedure done?: No Differential Diagnosis Kidney stone (Female): Strain, Urinary obstruction, Urolithiasis Urinary Problem (Male): Urethritis, Urinary Retention, UTI X-Ray, Labs, Meds, VS Vital Signs Date Time Temp Pulse Resp B/P (MAP) Pulse Ox O2 Delivery O2 Flow Rate FiO2 05/07/25 22:21 97.7 100 18 146/99 (115) 97 97.7 Lab Test 05/07/25 22:20 Range/Units Urine Color Brown H Yellow Urine Clarity Ex.turbid Clear Urine pH 5.5 5.0-9.0 Urine Specific [place] 1.020 1.001-1.035 Urine Protein 1+ H Negative Urine Ketones 1+ H Negative Urine Blood 2+ H Negative /uL Urine Nitrite 2+ H Negative Urine Bilirubin Negative Negative Urine Urobilinogen Normal Negative mg/dL Urine Leukocyte Esterase 3+ Negative /uL Urine RBC 58 0 - 3 /hpf Urine WBC Clumps Present None Seen /hpf Urine Microscopic WBC 4114 H 0-3 /HPF Urine Squamous Epithelial Cells None seen <5 /hpf Urine Bacteria Many H None Seen /hpf Urine Mucus Few None Seen Urine Glucose Normal Normal mg/dL Current Medications Medications (Trade) Dose Ordered Sig/Syeda Route Start Time Stop Time Status Last Admin Lidocaine HCl (Glydo) 11 ml ONCE ONCE UR 05/07/25 22:15 05/07/25 22:16 DC 05/07/25 22:41 Ceftriaxone Sodium (Rocephin) 1,000 mg ONCE ONCE IM 05/07/25 22:30 05/07/25 22:31 DC 05/07/25 22:31 X-Ray, Labs, Meds, VS Comment A VÁZQUEZ CATHETER PLACED PATIENT WITH IMMEDIATE PAIN RELIEF, 1000 CC OF PURULENT URINE OUT. PATIENT HAS NOT APPOINTMENT NEXT WEEK ON FRIDAY WITH HIS UROLOGIST HERE AT [facility] WE WILL DISCHARGE WITH VÁZQUEZ CATHETER BAG WE WILL SCRIPT TRIAL OF CIPRO TWICE DAILY TIMES 14 DAYS FOR UTI AND PROSTATITIS. ADVISED TO TAKE MEDICATIONS PRESCRIBED SIDE EFFECTS WERE DISCUSSED. ADVISED TO INCREASE P.O. FLUIDS WITH ELECTROLYTES. ADVISED TO TAKE TYLENOL OR MOTRIN [id number] FOR PAIN PER LABELED DOSING INSTRUCTIONS. ADVISED ON ER RETURN PRECAUTIONS PATIENT IS INDICATED UNDERSTANDING AND AGREES WITH DISCHARGE PLAN OF CARE. Time of 1ST Reevaluation: 21:57 Reevaluation 1ST: Unchanged Time of 2ND Reevaluation: 22:44 Reevaluation 2ND: Improved Patient Education/Counseling: Diagnosis, Treatment, Prognosis, Need For Follow Up Family Education/Counseling: No Family Present SEPSIS Sepsis Screen Date sepsis recognized/suspect: May 07, 2025 Time Sepsis recognized/suspect: 2220 Recent Procedure: No On Antibiotic Therapy: No Respiratory Rate >20: No Heart Rate >90: Yes Temp<36 C (96.8 F) or >38.3 C: No SBP <90 or MAP <65 mmHG: No New Acute Mental Status Change: No Is the patient on CPAP, BIPAP,: No Physician Orders Vázquez Catheters (05/07/25 ) Vital Signs Date Time Temp Pulse Resp B/P (MAP) Pulse Ox O2 Delivery O2 Flow Rate FiO2 05/07/25 22:21 97.7 100 18 146/99 (115) 97 97.7 Medications Medications Dose Ordered Sig/Syeda Route Start Time Stop Time Status Last Admin Dose Admin Ceftriaxone Sodium 1,000 mg ONCE ONCE IM 05/07/25 22:30 05/07/25 22:31 DC 05/07/25 22:31 Lidocaine HCl 11 ml ONCE ONCE UR 05/07/25 22:15 05/07/25 22:16 DC 05/07/25 22:41 Departure 1 Departure Time of Disposition: 22:44 Impression: Primary Impression: Acute UTI (urinary tract infection) Additional Impression: Prostatitis Qualified Codes: N41.0 - Acute prostatitis Disposition: 01 HOME / SELF CARE / HOMELESS Condition: Stable e-Prescriptions Ciprofloxacin Hcl (Cipro) 500 Mg Tab 500 MG PO BID for 14 Days, #28 TAB Prov: MUMTAZ COLE 05/07/25 Discharged With: Self Critical Care Note Critical Care Time?: No Stability Stability form required: MUMTAZ Dougherty May 07, 2025 22:46
[2025-05-07 22:54] VITALS: BP 146/99; PULSE 100; RESP 18; TEMP 97.7; O2SAT 97
== END 2025-05-07 22:56 | disposition home or self-care (01) ==
LOC: ER 21:46
DX: N39.0 Urinary tract infection, site not specified (principal); N41.0 Acute prostatitis; E78.5 Hyperlipidemia, unspecified; Z79.899 Other long term (current) drug therapy; Z95.0 Presence of cardiac pacemaker
CPT/HCPCS: 51702; 81001; 96372; 99284; A4315; J0696

== ENCOUNTER 2025-08-22 04:21 | Emergency (ER) | payer BC ==
[~2025-08-22] VITALS: Ht 177.8 cm; Wt 84.5 kg
--- NOTE | 2025-08-22 05:01 | ED.PDOC ---
History of Present Illness HPI Comments 60 y/o M, with a history of BPH and UTI's, presents with c/c of Mñuoz catheter malfunction. Patient reports on his Muñoz catheter, recently, stop draining in addition to having associated penile pain. Last time Muñoz was changed was in June 2025. Usually, patient reports on having Muñoz changed every month since original placement following BPH diagnosis but states on urology outpatient no longer contacting him to schedule following last appointment. No endorsed recent ailments or injuries. Denial of any hematuria, fever, chills, or further associated symptoms. Chief Complaint: Urinary Time Seen by MD: 05:00 Primary Care Provider: denies Reviewed Notes: Nurses Notes, Medications, Allergies Allergies: Coded Allergies: No Known Drug Allergy (Verified Allergy, Unknown, 07/25/22) Home Meds Active Scripts Atorvastatin Calcium (Lipitor) 40 Mg Tab, 1 TAB PO DAILY, #90 TAB 1 Refill Prov:CORI SAINZ MD 07/27/22 Information Source: Patient Mode of Arrival: Ambulatory Past Medical History PAST MEDICAL HISTORY: High Lipids, UTI'S Past Medical History (Other): BPH Surgical History: Pacemaker Family History Family History: Reviewed,noncontributory to illness Social History Smoker: Non-Smoker Alcohol: Denies ETOH Use, Unknown Drugs: Denies Drug Use Lives In: Home All Other Systems: Reviewed and Negative (Comprehensive review of systems are negative unless stated in HPI) Physical Exam General Appearance: Moderate Distress HEENT: Normal ENT Inspection, Pharynx Normal, TMs Normal Neck: Full Range of Motion, Non-Tender, Normal, Normal Inspection Respiratory: Chest Non-Tender, Lungs Clear, No Accessory Muscle Use, No Respiratory Distress, Normal Breath Sounds Cardiovascular: No Edema, No JVD, No Murmur, No Gallop, Normal Peripheral Pulses, Regular Rate/Rhythm Breast Exam: Deferred Gastrointestinal: No Organomegaly, Non Tender, No Pulsatile Mass, Normal Bowel Sounds, Soft Genitalia: Deferred Pelvic: Deferred Rectal: Deferred Extremities: No calf tenderness, Normal capillary refill, Normal inspection, Normal range of motion, Non-tender, No pedal edema Musculoskeletal : Apperance: Normal Neurologic: Alert, cooling room attendant II-XII nml as Tested, No Motor Deficits, Normal Affect, Normal Mood, No Sensory Deficits Cerebellar Function: Normal Reflexes: Normal Skin: Dry, Normal Color, Warm Peripheral Pulses: 3+ Radial (R), 3+ Radial (L) Lymphatic: No Adenopathy Was a procedure done? Was a procedure done?: No Differential Dx Considerations may include: Muñoz catheter malfunction, UTI X-Ray, Labs, Meds, VS Vital Signs Date Time Temp Pulse Resp B/P (MAP) Pulse Ox O2 Delivery O2 Flow Rate FiO2 08/22/25 04:30 99.1 91 20 125/98 97 99.1 Patient alert. Came in because of Muñoz catheter. Had to change Muñoz catheter. Vitals stable. Answering questions. No leg swelling. No shortness a breath. No chest pain. Had good relief after placement of the new Muñoz catheter. Urinary infection. Was given prescription of Bactrim. Explained to the patient. Was told to follow up with his urologist. Was told to follow up with her primary care physician. Was told to come back if there is any problem. Time of 1ST Reevaluation: 05:30 Reevaluation 1ST: Improved Patient Education/Counseling: Diagnosis, Treatment Family Education/Counseling: No Family Present SEPSIS Sepsis Screen Date sepsis recognized/suspect: Aug 22, 2025 Time Sepsis recognized/suspect: 431 Recent Procedure: No On Antibiotic Therapy: No Respiratory Rate >20: No Heart Rate >90: No Temp<36 C (96.8 F) or >38.3 C: No SBP <90 or MAP <65 mmHG: No New Acute Mental Status Change: No Is the patient on CPAP, BIPAP,: No Physician Orders Urinalysis (08/22/25 04:40) Ok To Change Muñoz (08/22/25 04:40) Vital Signs Date Time Temp Pulse Resp B/P (MAP) Pulse Ox O2 Delivery O2 Flow Rate FiO2 08/22/25 04:30 99.1 91 20 125/98 97 99.1 Departure 1 Departure Time of Disposition: 05:18 Impression: Primary Impression: Retention of urine, unspecified Additional Impression: Acute UTI (urinary tract infection) Disposition: HOME / SELF CARE / HOMELESS Condition: Good e-Prescriptions Sulfamethoxazole W/Trimethopri (Bactrim Ds Tablet) 1 Tab Tb 1 TAB PO BID for 10 Days, #20 TAB Prov: JESUS ENGLAND MD 08/22/25 Discharged With: Self Critical Care Note Critical Care Time?: No Stability Stability form required: No Heart Score Heart Score: Heart Score Response (Comments) Value History N/A 0 EKG N/A 0 Age N/A 0 Risk Factors N/A 0 Troponin N/A 0 Total 0 I personally scribed for JESUS ENGLAND MD ([email or web address]) on 08/22/25 at 05:01. Electronically submitted by Rg Macdonald ([email or web address]). JESUS ENGLAND MD Aug 22, 2025 05:01
[2025-08-22] MEDS ORDERED: BACDST PO (05:19)
[2025-08-22 05:30] VITALS: PULSE 91; RESP 19; O2SAT 97
[2025-08-22 05:52] VITALS: BP 125/98; PULSE 90; RESP 19; TEMP 99; O2SAT 97
== END 2025-08-22 06:00 | disposition home or self-care (01) ==
LOC: ER 04:21
DX: N39.0 Urinary tract infection, site not specified (principal); N40.1 Benign prostatic hyperplasia with lower urinary tract symptoms; R33.9 Retention of urine, unspecified; E78.5 Hyperlipidemia, unspecified; Z79.899 Other long term (current) drug therapy; Z87.440 Personal history of urinary (tract) infections; Z95.0 Presence of cardiac pacemaker
CPT/HCPCS: 51702; 99284; A4315